=== PATIENT | male | born 1990 | race African-American/Black ===

== ENCOUNTER 2016-11-22 20:21 | Emergency (ER) | payer BC ==
[2016-11-22 20:33] VITALS: BP 163/104
--- NOTE | 2016-11-22 20:35 | EDM.PDOC ---
ED HPI GENERAL MEDICAL PROBLEM - General Chief Complaint: Neuro Symptoms/Deficits Stated Complaint: WEAK & DIZZY Time Seen by Provider: 11/22/16 20:34 Source of Information: Reports: Patient History Limitations: Reports: No Limitations - History of Present Illness INITIAL COMMENTS - FREE TEXT/NARRATIVE: 26-year-old male presents to the ED with complaints of feeling weak and dizzy. There is some suggestion that he passed a black tarry stool this morning. No noted blood per rectum. He does not take any iron supplements. Denies any significant abdominal pain. Bowel function is usually normal. He presents actually hypertensive and is not hypotensive or orthostatic. No previous abdominal surgery. No history of inflammatory bowel disorder. Takes Motrin sparingly usually once or twice per week. Regular rarely drinks alcohol. Denies use of any street drugs. He mentions that he has trouble eating and early satiety. Not really GERD. This is more of a chronic problem murmur not just today. Unsure if he's been running a fever or not. Onset: Today Onset Date: 11/22/16 Onset Time: 12:00 Duration: Hour(s): Location: Reports: Generalized (Generalized sense of weakness and dizziness.) Quality: Reports: Other Severity: Moderate (Week and dizzy) Improves with: Reports: Rest Worsens with: Reports: Other (Standing) Context: Denies: Activity, Exercise, Lifting, Sick Contact, Trauma, Other Associated Symptoms: Reports: Other (States he had a stool that was quite dark in color today. 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 11/22/16 [ Rx] Social & Family History - Living Situation & Occupation Living situation: Reports: Single Occupation: Employed ([employer]) ED ROS GENERAL - Review of Systems Review Of Systems: See Below Constitutional: Reports: No Symptoms HEENT: Reports: No Symptoms Respiratory: Reports: No Symptoms Cardiovascular: Reports: No Symptoms Endocrine: Reports: No Symptoms GI/Abdominal: Reports: No Symptoms : Reports: No Symptoms Musculoskeletal: Reports: No Symptoms Skin: Reports: No Symptoms Neurological: Reports: No Symptoms Psychiatric: Reports: No Symptoms Hematologic/Lymphatic: Reports: No Symptoms Immunologic: Reports: No Symptoms ED EXAM, NEURO - Physical Exam Exam: See Below Exam Limited By: No Limitations General Appearance: Alert, WD/WN, No Apparent Distress, Other (He is quite hypertensive at time of presentation 160 08/11/03 and tachycardic at 1 10/m. Does appear quite anxious.) Eye Exam: Bilateral Eye: Normal Inspection Nose: Normal Inspection Throat/Mouth: Normal Lips, Other (Tongue is dry and coated.) Head Exam: Atraumatic, Normocephalic Neck: Normal Inspection, Supple, Non-Tender, Full Range of Motion. No: Lymphadenopathy (L), Lymphadenopathy (R) Respiratory/Chest: No Respiratory Distress, Lungs Clear, Normal Breath Sounds, No Accessory Muscle Use, Respiratory Distress (Mild tachypnea at rest 20/m. O2 sats are 99% on room air) Cardiovascular: Normal Peripheral Pulses, Regular Rate, Rhythm, No Edema, No Murmur, Tachycardia GI/Abdominal: Normal Bowel Sounds (110 at rest.), Soft, Non-Tender, No Organomegaly, No Distention, No Abnormal Bruit, No Mass, Pelvis Stable Neurological: Alert, Normal Mood/Affect, Normal Dorsiflexion, CN II-XII Intact, Normal Gait Back Exam: Normal Inspection, Full Range of Motion Extremities: Normal Inspection, Normal Range of Motion, Non-Tender, No Pedal Edema, Normal Capillary Refill Psychiatric: Normal Affect, Normal Mood Skin Exam: Warm, Dry, Intact, Normal Color, No Rash Course - Vital Signs Last Recorded V/S: Last Vital Signs Temp 36.2 C 11/22/16 20:30 Pulse 110 H 11/22/16 20:30 Resp 20 11/22/16 20:30 BP 163/104 H 11/22/16 20:30 Pulse Ox 99 11/22/16 20:30 Orthostatic Blood Pressure [ 149/98 Standing] Orthostatic Blood Pressure [ 149/97 Sitting] Orthostatic Blood Pressure [ 143/99 Supine] - Orders/Labs/Meds Orders: Active Orders 24 hr Category Date Time Status Hemoccult [Fecal Occult Blood Collection] [RC] Care 11/22/16 22:25 Active ASDIRECTED Orthostatic Vital Signs [RC] ASDIRECTED Care 11/22/16 20:40 Active Guaiac [OCCULT BLOOD DIAGNOSTIC] [OP] Stat Lab 11/22/16 20:40 Uncollected Hemoccult [OCCULT BLOOD DIAGNOSTIC] [OP] Stat Lab 11/22/16 21:55 Uncollected Dextrose 5%-0.9% NaCl [Dextrose 5%-Normal Saline] 1,000 Med 11/22/16 20:45 Active ml IV ASDIRECTED Medication Orders Dextrose/Sodium Chloride (Dextrose 5%-Normal Saline) 1,000 mls @ 999 mls/hr IV ASDIRECTED SONAL Last Admin: 11/22/16 20:54 Dose: 999 mls/hr Labs: Laboratory Tests 11/22/16 11/22/16 11/22/16 Range/Units 20:38 20:43 20:43 WBC 6.92 (4.23-9.07) K/mm3 RBC 5.54 (4.63-6.08) M/mm3 Hgb 15.2 (13.7-17.5) gm/L Hct 45.2 (40.1-51.0) % MCV 81.6 (79.0-92.2) fl MCH 27.4 (25.7-32.2) pg MCHC 33.6 (32.2-35.5) g/dl RDW Std Deviation 38.8 (35.1-43.9) fL Plt Count 185 (163-337) K/mm3 MPV 11.7 (9.4-12.3) fl Neutrophils % (Manual) 26 L (40-60) % Band Neutrophils % 0 (0-10) % Lymphocytes % (Manual) 61 H (20-40) % Atypical Lymphs % 7 % Monocytes % (Manual) 5 (2-10) % Eosinophils % (Manual) 1 (0.8-7.0) % Basophils % (Manual) 0 L (0.2-1.2) Platelet Estimate Adequate Plt Morphology Comment See note Polychromasia Few Stomatocytes Few RBC Morph Comment Not Reportable Sodium 142 (136-145) mEq/L Potassium 3.4 L (3.5-5.1) mEq/L Chloride 106 (98-107) mEq/L Carbon Dioxide 29 (21-32) mEq/L Anion Gap 10.4 (5-15) BUN 10 (7-18) mg/dL Creatinine 1.1 (0.7-1.3) mg/dL Est Cr Clr Drug Dosing 85.96 mL/min Estimated GFR (MDRD) > 60 (>60) mL/min BUN/Creatinine Ratio 9.1 L (14-18) Glucose 125 H (74-106) mg/dL Calcium 8.9 (8.5-10.1) mg/dL Magnesium 1.7 L (1.8-2.4) mg/dl Total Bilirubin 0.6 (0.2-1.0) mg/dL AST 17 (15-37) U/L ALT 34 (16-63) U/L Alkaline Phosphatase 51 (46-116) U/L Total Protein 7.8 (6.4-8.2) g/dl Albumin 4.1 (3.4-5.0) g/dl Globulin 3.7 gm/dL Albumin/Globulin Ratio 1.1 (1-2) H. pylori IgG Antibody (NEGATIVE) Blood Type B POSITIVE Gel Antibody Screen Negative 11/22/16 Range/Units 20:43 WBC (4.23-9.07) K/mm3 RBC (4.63-6.08) M/mm3 Hgb (13.7-17.5) gm/L Hct (40.1-51.0) % MCV (79.0-92.2) fl MCH (25.7-32.2) pg MCHC (32.2-35.5) g/dl RDW Std Deviation (35.1-43.9) fL Plt Count (163-337) K/mm3 MPV (9.4-12.3) fl Neutrophils % (Manual) (40-60) % Band Neutrophils % (0-10) % Lymphocytes % (Manual) (20-40) % Atypical Lymphs % % Monocytes % (Manual) (2-10) % Eosinophils % (Manual) (0.8-7.0) % Basophils % (Manual) (0.2-1.2) Platelet Estimate Plt Morphology Comment Polychromasia Stomatocytes RBC Morph Comment Sodium (136-145) mEq/L Potassium (3.5-5.1) mEq/L Chloride (98-107) mEq/L Carbon Dioxide (21-32) mEq/L Anion Gap (5-15) BUN (7-18) mg/dL Creatinine (0.7-1.3) mg/dL Est Cr Clr Drug Dosing mL/min Estimated GFR (MDRD) (>60) mL/min BUN/Creatinine Ratio (14-18) Glucose (74-106) mg/dL Calcium (8.5-10.1) mg/dL Magnesium (1.8-2.4) mg/dl Total Bilirubin (0.2-1.0) mg/dL AST (15-37) U/L ALT (16-63) U/L Alkaline Phosphatase (46-116) U/L Total Protein (6.4-8.2) g/dl Albumin (3.4-5.0) g/dl Globulin gm/dL Albumin/Globulin Ratio (1-2) H. pylori IgG Antibody Positive H (NEGATIVE) Blood Type Gel Antibody Screen Meds: Medications Generic Name Dose Route Start Last Admin Trade Name Freq PRN Reason Stop Dose Admin Dextrose/Sodium Chloride 1,000 mls @ 999 mls/hr 11/22/16 20:45 11/22/16 20:54 Dextrose 5%-Normal Saline IV 999 mls/hr ASDIRECTED SONAL Administration - Radiology Interpretation Free Text/Narrative:: 26-year-old male presents to the ED with nonspecific symptoms of feeling weak and dizzy. Some suggesting may have had a black stool this morning. His appetite has not been the best as of late. He is alert and oriented. He is tachycardic at rest at 1 10/m but is also markedly hypertensive. Be somewhat anxious. Examination is otherwise normal. Benign abdominal examination. Tongue is dry and coated. Plan IV D5 normal saline at open. Routine labs to be collected. - Re-Assessments/Exams Free Text/Narrative Re-Assessment/Exam: 11/22/16 21:25: Rectal exam done revealed a rectal vault that was for the most part empty. A couple of flecks of stool were utilized for awake but it was negative. 11/22/16 22:11 labs reveal a normal white count at 6.92 with 26% neutrophils however and 61% lymphocytes strongly suggesting a viral infection. Hemoglobin is 15.2 hematocrit is 45.2 sodium 142 potassium 3.4 chloride 16 bicarbonate is 29 glucose was 125 magnesium mildly low at 1.7. H. pylori is positive. Therefore this time I believe he is suffering a viral infection. He will use Tylenol or Motrin as needed to reduce pain and inflammation. Continue plenty of fluids such as Gatorade or Powerade and advance diet as tolerated. Will start him on Prilosec 20 mg twice daily bedtime and morning for the next 3 days and then he can start oral antibiotics amoxicillin 1 g twice daily for 12 days and Biaxin 500 mg twice daily for 12 days to clear up H. pylori infection. He will of course return to medical care if his stools remain black lung more than one occasion. Departure - Departure Time of Disposition: 22:13 Disposition: Home, Self-Care 01 Condition: Fair Clinical Impression: Viral syndrome, Helicobacter pylori (H. pylori) infection - Discharge Information Prescriptions: Amoxicillin [Amoxil] 1,000 mg PO BID #24 cap Clarithromycin [Biaxin] 500 mg PO BID #24 tablet Omeprazole Magnesium [Prilosec Otc] 20 mg PO ASDIRECTED #90 tablet. Referrals: PCP,None [Primary Care Provider] - Forms: ED Department Discharge Additional Instructions: Evaluation the emergency room today in regards to general weakness and severe illness. Lab work identified a viral infection which is nonspecific. Concern for passage of dark black stool identified but tested negative for blood. However testing revealed that you are positive for H. pylori infection which is a bacteria that lives in the stomach and causes inflammation and about 90% of peptic ulcers. This deserves treatment with antibiotics. Initial treatment therefore is to buy Prilosec which is [id number] 20 mg at bedtime and first thing in the morning for 1 month. Uses medicine for 3 days before starting antibiotic therapy. Antibiotics are to be amoxicillin 1 g twice daily and Biaxin 500 mg twice daily for 12 days to clear up H. pylori infection of the stomach. Will need to use Prilosec 20 mg once daily at bedtime for further month after finishing the first month of therapy twice daily. - My Orders Last 24 Hours: My Active Orders 11/22/16 20:40 Orthostatic Vital Signs [RC] ASDIRECTED Guaiac [OCCULT BLOOD DIAGNOSTIC] [OP] Stat 11/22/16 20:45 Dextrose 5%-0.9% NaCl [Dextrose 5%-Normal Saline] 1,000 ml IV ASDIRECTED 11/22/16 21:55 Hemoccult [OCCULT BLOOD DIAGNOSTIC] [OP] Stat 11/22/16 22:25 Hemoccult [Fecal Occult Blood Collection] [RC] ASDIRECTED - Assessment/Plan Last 24 Hours: My Active Orders 11/22/16 20:40 Orthostatic Vital Signs [RC] ASDIRECTED Guaiac [OCCULT BLOOD DIAGNOSTIC] [OP] Stat 11/22/16 20:45 Dextrose 5%-0.9% NaCl [Dextrose 5%-Normal Saline] 1,000 ml IV ASDIRECTED 11/22/16 21:55 Hemoccult [OCCULT BLOOD DIAGNOSTIC] [OP] Stat 11/22/16 22:25 Hemoccult [Fecal Occult Blood Collection] [RC] ASDIRECTED
[2016-11-22] MEDS ORDERED: Dextrose 5%-0.9% NaCl 1,000 ML IV SCH (20:45)
== END 2016-11-22 23:31 | disposition home or self-care (01) ==
LOC: JD.ED 20:21
DX: B34.9 Viral infection, unspecified (principal); A04.8 Other specified bacterial intestinal infections
CPT/HCPCS: 36415; 80053; 82270; 83735; 85025; 86677; 86850; 86900; 86901; 96360; 99285; J7042; 99283

== ENCOUNTER 2017-05-04 09:10 | Emergency (ER) | payer BC ==
--- NOTE | 2017-05-04 09:49 | EDM.PDOC ---
ED HPI GENERAL MEDICAL PROBLEM - General Chief Complaint: Neuro Symptoms/Deficits Stated Complaint: DIZZINESS/SOME ANXIETY Time Seen by Provider: 05/04/17 09:27 Source of Information: Reports: Patient, RN Notes Reviewed - History of Present Illness INITIAL COMMENTS - FREE TEXT/NARRATIVE: 27-year-old male comes in after having an episode of dizziness, palpitations, that also made him feel "anxious". He presented to the walk-in clinic, they referred him here to the ED. He had no chest pain or difficulty breathing. He had been awake for a short period of time, was just doing some light cleaning up in the kitchen and began to feel moderately weak, dizzy, lightheaded and also palpitations across the front part of his chest. He did not feel like he is going to pass out. I'll order he has had several similar episodes of greater severity in the past month or 2 though felt like he should seek medical attention. He states he has been to the clinic a couple of times previously. He is not sure what all has been done but he knows that they did "check his thyroid " and that was normal. - Related Data Allergies Allergy/AdvReac Type Severity Reaction Status Date / Time No Known Allergies Allergy Verified 05/04/17 09:33 Home Meds: Home Meds Meclizine [Antivert] 25 mg PO Q4H PRN 05/04/17 [History] Past Medical History - Past Health History Medical/Surgical History: Denies Medical/Surgical History Other Gastrointestinal History: states bm today was black Social & Family History - Family History Family Medical History: Noncontributory - Tobacco Use Smoking Status *Q: Never Smoker - Caffeine Use Caffeine Use: Reports: Soda - Recreational Drug Use Recreational Drug Use: No - Living Situation & Occupation Living situation: Reports: Single Occupation: Employed ([employer]) ED ROS GENERAL - Review of Systems Review Of Systems: See Below Constitutional: Denies: Fever, Chills, Diaphoresis HEENT: Denies: Throat Pain Respiratory: Denies: Shortness of Breath Cardiovascular: Reports: Lightheadedness, Palpitations GI/Abdominal: Denies: Abdominal Pain, Diarrhea, Nausea, Vomiting : Reports: No Symptoms Musculoskeletal: Reports: No Symptoms Skin: Reports: No Symptoms Neurological: Reports: Dizziness. Denies: Numbness, Tingling, Trouble Speaking , Difficulty Walking Psychiatric: Reports: Anxiety (Patient did get anxious with this episode, he feels much better now, anxiety is gone) ED EXAM, NEURO - Physical Exam Exam: See Below General Appearance: Alert, No Apparent Distress Eye Exam: Bilateral Eye: PERRL Throat/Mouth: Normal Inspection, Normal Oropharynx Head Exam: Atraumatic. No: Facial Swelling Neck: Supple, Full Range of Motion Respiratory/Chest: No Respiratory Distress, Lungs Clear, Normal Breath Sounds Cardiovascular: Regular Rate, Rhythm GI/Abdominal: Soft, Non-Tender. No: Guarding Neurological: Alert, No Motor/Sensory Deficits, Oriented x 3 Extremities: Normal Inspection, Normal Range of Motion Skin Exam: Warm, Dry, Normal Color Course - Vital Signs Text/Narrative:: Heart monitor shows heart rhythm running in the low to mid 70s, sinus rhythm, no ectopy at this time Last Recorded V/S: Last Vital Signs Temp 97.1 F 05/04/17 09:29 Pulse 92 05/04/17 09:29 Resp 16 05/04/17 09:29 BP 144/89 H 05/04/17 09:29 Pulse Ox - Orders/Labs/Meds Labs: Laboratory Tests 05/04/17 05/04/17 Range/Units 09:55 09:55 WBC 3.04 L (4.23-9.07) K/mm3 RBC 5.55 (4.63-6.08) M/mm3 Hgb 15.3 (13.7-17.5) gm/L Hct 45.5 (40.1-51.0) % MCV 82.0 (79.0-92.2) fl MCH 27.6 (25.7-32.2) pg MCHC 33.6 (32.2-35.5) g/dl RDW Std Deviation 39.4 (35.1-43.9) fL Plt Count 192 (163-337) K/mm3 MPV 10.7 (9.4-12.3) fl Neut % (Auto) 38.5 (34.0-67.9) % Lymph % (Auto) 48.0 (21.8-53.1) % [place] % (Auto) 11.2 (5.3-12.2) % Eos % (Auto) 1.3 (0.8-7.0) Baso % (Auto) 1.0 (0.1-1.2) % Neut # (Auto) 1.17 L (1.78-5.38) K/mm3 Lymph # (Auto) 1.46 (1.32-3.57) K/mm3 [place] # (Auto) 0.34 (0.30-0.82) K/mm3 Eos # (Auto) 0.04 (0.04-0.54) K/mm3 Baso # (Auto) 0.03 (0.01-0.08) K/mm3 Sodium 144 (136-145) mEq/L Potassium 3.6 (3.5-5.1) mEq/L Chloride 105 (98-107) mEq/L Carbon Dioxide 30 (21-32) mEq/L Anion Gap 12.6 (5-15) BUN 9 (7-18) mg/dL Creatinine 1.1 (0.7-1.3) mg/dL Est Cr Clr Drug Dosing TNP Estimated GFR (MDRD) > 60 (>60) mL/min BUN/Creatinine Ratio 8.2 L (14-18) Glucose 94 (74-106) mg/dL Calcium 9.3 (8.5-10.1) mg/dL Total Bilirubin 0.4 (0.2-1.0) mg/dL AST 27 (15-37) U/L ALT 48 (16-63) U/L Alkaline Phosphatase 54 (46-116) U/L Total Protein 7.7 (6.4-8.2) g/dl Albumin 3.9 (3.4-5.0) g/dl Globulin 3.8 gm/dL Albumin/Globulin Ratio 1.0 (1-2) - Re-Assessments/Exams Free Text/Narrative Re-Assessment/Exam: 05/04/17 10:53 Patient has been resting comfortably while here in the ED, labs are good, he has been in sinus rhythm, heart rate in the 60s to mid 70s, no ectopy. Departure - Departure Time of Disposition: 10:53 Disposition: Home, Self-Care 01 Condition: Fair Clinical Impression: Dizziness, Palpitations - Discharge Information Referrals: Beverley Solano PA-C [Primary Care Provider] - Forms: ED Department Discharge Additional Instructions: Your labwork today was normal. Your heart rate and rhythm while here in the ED also was normal. When you do get extremely dizzy be sure to lower your head as discussed so you do not pass out. get a blood pressure cuff and checked your blood pressure about twice daily for the next 2 weeks. Keep a record of that and follow-up at the clinic in 10-14 days, bring that record of your blood pressure readings with you. If you're readings on average are running high then it would be appropriate to start you on blood pressure medicine. Return to ED if symptoms worsening in any way
[2017-05-04 12:33] VITALS: BP 126/85
== END 2017-05-04 11:20 | disposition home or self-care (01) ==
LOC: JD.ED 09:10
DX: R42 Dizziness and giddiness (principal); R00.2 Palpitations
CPT/HCPCS: 36415; 80053; 85025; 99283; 99285

== ENCOUNTER 2017-06-20 18:47 | Emergency (ER) | payer BC ==
[2017-06-20 18:58] VITALS: BP 158/102
--- NOTE | 2017-06-20 19:13 | EDM.PDOC ---
ED HPI GENERAL MEDICAL PROBLEM - General Chief Complaint: Neurological Problem Stated Complaint: DIZZY Time Seen by Provider: 06/20/17 19:03 - History of Present Illness INITIAL COMMENTS - FREE TEXT/NARRATIVE: 27-year-old male presents to the emergency room with dizziness and anxiety. The patient get some dizziness and then he develops anxiety and they came to feed off each other's had intermittent problems like this in the past. Ativan usually works pretty well for the patient is worried that something might be wrong with his heart. He's had no breathing difficulties no shortness of breath no real palpitations no chest pain chest pressure no edema. - Related Data Allergies Allergy/AdvReac Type Severity Reaction Status Date / Time No Known Allergies Allergy Verified 05/04/17 09:33 Home Meds: Home Meds Meclizine [Antivert] 25 mg PO Q4H PRN 05/04/17 [History] LORazepam [Ativan] 0.5 mg PO Q8H PRN #10 tablet 06/20/17 [Rx] Magnesium Oxide [Magnesium] 400 mg PO Q24H #10 tablet 06/20/17 [Rx] Past Medical History - Past Health History Medical/Surgical History: Denies Medical/Surgical History Other Gastrointestinal History: states bm today was black Psychiatric History: Reports: Anxiety Social & Family History - Family History Family Medical History: Noncontributory - Tobacco Use Smoking Status *Q: Never Smoker - Caffeine Use Caffeine Use: Reports: None - Recreational Drug Use Recreational Drug Use: No - Living Situation & Occupation Living situation: Reports: Single Occupation: Employed ([employer]) ED ROS GENERAL - Review of Systems Review Of Systems: See Below Constitutional: Reports: No Symptoms HEENT: Reports: No Symptoms Respiratory: Reports: No Symptoms Cardiovascular: Reports: No Symptoms Endocrine: Reports: No Symptoms GI/Abdominal: Reports: No Symptoms : Reports: No Symptoms Musculoskeletal: Reports: No Symptoms Skin: Reports: No Symptoms Neurological: Reports: Dizziness. Denies: Headache, Numbness, Pre-Existing Deficit, Seizure, Syncope, Tremors, Change in Speech, Gait Disturbance Psychiatric: Reports: No Symptoms ED EXAM, GENERAL - Physical Exam Exam: See Below Exam Limited By: No Limitations General Appearance: Alert, No Apparent Distress Eye Exam: Bilateral Eye: EOMI, Normal Inspection Nose: Normal Inspection, Normal Mucosa Throat/Mouth: Normal Inspection, Normal Lips, Normal Gums, Normal Oropharynx, Normal Voice, No Airway Compromise Neck: Normal Inspection, Supple, Non-Tender, Full Range of Motion. No: Lymphadenopathy (L), Lymphadenopathy (R) Respiratory/Chest: No Respiratory Distress, Lungs Clear Cardiovascular: Regular Rate, Rhythm, No Edema, No Murmur Back Exam: Normal Inspection. No: CVA Tenderness (L), CVA Tenderness (R) Extremities: Normal Inspection, No Pedal Edema Neurological: Alert, Oriented, Normal Cognition, No Motor/Sensory Deficits Psychiatric: Normal Affect, Normal Mood Skin Exam: Warm, Dry EKG INTERPRETATION EKG Date: 06/20/17 Rhythm: NSR [place]: Normal P-Wave: Present QRS: Normal ST-T: Normal QT: Normal Comparison: NA - No Prior EKG Course - Vital Signs Last Recorded V/S: Last Vital Signs Temp 36.0 C 06/20/17 18:54 Pulse 107 H 06/20/17 18:54 Resp 18 06/20/17 18:54 BP 158/102 H 06/20/17 18:54 Pulse Ox 98 06/20/17 18:54 - Orders/Labs/Meds Orders: Active Orders 24 hr Category Date Time Status EKG Documentation Completion [RC] STAT Care 06/20/17 19:26 Active Labs: Laboratory Tests 06/20/17 Range/Units 19:55 Sodium 139 (136-145) mEq/L Potassium 3.9 (3.5-5.1) mEq/L Chloride 102 (98-107) mEq/L Carbon Dioxide 28 (21-32) mEq/L Anion Gap 12.9 (5-15) BUN 13 (7-18) mg/dL Creatinine 1.1 (0.7-1.3) mg/dL Est Cr Clr Drug Dosing 85.21 mL/min Estimated GFR (MDRD) > 60 (>60) mL/min BUN/Creatinine Ratio 11.8 L (14-18) Glucose 96 (74-106) mg/dL Calcium 9.3 (8.5-10.1) mg/dL Magnesium 1.7 L (1.8-2.4) mg/dl Meds: Medications Discontinued Medications Generic Name Dose Route Start Last Admin Trade Name Freq PRN Reason Stop Dose Admin Lorazepam 0.5 mg 06/20/17 19:27 06/20/17 19:35 Ativan PO 06/20/17 19:28 0.5 mg ONETIME ONE Administration Magnesium Oxide 400 mg 06/20/17 20:36 Magnesium Oxide PO 06/20/17 20:37 ONETIME ONE - Re-Assessments/Exams Free Text/Narrative Re-Assessment/Exam: 06/20/17 20:45 Labs reviewed his magnesium is a little low otherwise unremarkable EKG probably normal with some normal variants. Blood pressure has come down with no intervention patient will be discharged with magnesium oxide 40 mg daily Departure - Departure Time of Disposition: 20:46 Disposition: Home, Self-Care 01 Clinical Impression: Anxiety - Discharge Information Prescriptions: LORazepam [Ativan] 0.5 mg PO Q8H PRN #10 tablet PRN Reason: Anxiety Magnesium Oxide [Magnesium] 400 mg PO Q24H #10 tablet Referrals: PCP,None [Primary Care Provider] - Forms: ED Department Discharge Additional Instructions: Return to the emergency room with any questions problems worsening symptoms. Follow-up in the clinic early next week for recheck. - My Orders Last 24 Hours: My Active Orders 06/20/17 19:26 EKG Documentation Completion [RC] STAT - Assessment/Plan Last 24 Hours: My Active Orders 06/20/17 19:26 EKG Documentation Completion [RC] STAT
[2017-06-20] MEDS ORDERED: LORazepam 0.5 MG Tab PO ONE (19:27)
[2017-06-20] MEDS ORDERED: Magnesium Oxide 400 MG Tab PO ONE (20:36)
== END 2017-06-20 21:09 | disposition home or self-care (01) ==
LOC: JD.ED 18:47
DX: F41.9 Anxiety disorder, unspecified (principal)
CPT/HCPCS: 36415; 80048; 83735; 93005; 99284; A9270; 93010; 99283-25

== ENCOUNTER 2017-09-28 19:31 | Emergency (ER) | payer BC ==
[2017-09-28 19:43] VITALS: BP 151/98
--- NOTE | 2017-09-28 19:55 | EDM.PDOC ---
ED HPI GENERAL MEDICAL PROBLEM - General Chief Complaint: Chest Pain Stated Complaint: CHEST PAIN Time Seen by Provider: 09/28/17 19:44 Source of Information: Reports: Patient History Limitations: Reports: No Limitations - History of Present Illness INITIAL COMMENTS - FREE TEXT/NARRATIVE: 37-year-old male of -[place] descent presents to the ED with left precordial chest pain which is unable to localize any specific area. Been present for the last 2 days. States it doesn't hurt to breathe or cough. Pains tend to be a bead of an achy discomfort but occasionally become sharp and stabbing. There is no associated fever. He's been coughing for about a week. Ringing up occasional sputum. No pulses. No recent travel history. 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 He states his appetite is good. He has no trouble swallowing or eating. Does not use any Tums or Rolaids. No known coronary disease. Onset: Gradual Onset Date: 09/27/17 (Physical he should left precordial chest pains off and on for the last 2 days.) Duration: Day(s): Location: Reports: Chest (Left precordial chest.) Quality: Reports: Ache, Dull (Occasional sharp pain), Sharp, Stabbing Severity: Mild Improves with: Reports: None Worsens with: Reports: None Context: Denies: Activity, Exercise, Lifting, Sick Contact, Other Associated Symptoms: Reports: Cough (Has been coughing small amounts of sputum production for the last), cough w sputum (Occasional sputum production). Denies : No Other Symptoms, Confusion ( week.), Diaphoresis, Fever/Chills, Headaches, Loss of Appetite, Malaise, Nausea/Vomiting, Rash, Seizure, Shortness of Breath, Syncope, Weakness Treatments [employer]PER[employer]: Reports: Other (see below) Chest Pain Score (Numeric/FACES): 1 - Related Data Allergies Allergy/AdvReac Type Severity Reaction Status Date / Time No Known Allergies Allergy Verified 09/28/17 19:39 Home Meds: Home Meds . [No Known Home Meds] 09/28/17 [History] Past Medical History - Past Health History Medical/Surgical History: Denies Medical/Surgical History Other Gastrointestinal History: states bm today was black Psychiatric History: Reports: Anxiety Social & Family History - Family History Family Medical History: Noncontributory - Tobacco Use Smoking Status *Q: Never Smoker - Caffeine Use Caffeine Use: Reports: None - Recreational Drug Use Recreational Drug Use: No - Living Situation & Occupation Living situation: Reports: Single Occupation: Employed ([employer]) ED ROS GENERAL - Review of Systems Review Of Systems: See Below Constitutional: Denies: Fever, Chills, Malaise, Weakness, Fatigue, Diaphoresis, Decreased Appetite, Weight Loss HEENT: Reports: No Symptoms Respiratory: Reports: Cough, Sputum. Denies: Shortness of Breath, Wheezing, Pleuritic Chest Pain, Hemoptysis Cardiovascular: Reports: Chest Pain ( Left), Blood Pressure Problem ( precordial chest. ). Denies: Claudication, Dyspnea on Exertion, Edema, Lightheadedness, Orthopnea Endocrine: Reports: Fatigue (Has been told his blood pressures been elevated in the past.) GI/Abdominal: Reports: No Symptoms : Reports: No Symptoms Musculoskeletal: Reports: No Symptoms Skin: Reports: No Symptoms Neurological: Reports: No Symptoms Psychiatric: Reports: No Symptoms Hematologic/Lymphatic: Reports: No Symptoms Immunologic: Reports: Seasonal Allergy ED EXAM, GENERAL - Physical Exam Exam: See Below Exam Limited By: No Limitations General Appearance: Alert, WD/WN, No Apparent Distress, Anxious (Is mildly anxious and blood pressure is elevated.) Eye Exam: Bilateral Eye: Normal Inspection Head: Atraumatic, Normocephalic Neck: Normal Inspection, Supple, Non-Tender, Full Range of Motion. No: Carotid Bruit, Lymphadenopathy (L), Lymphadenopathy (R) Respiratory/Chest: No Respiratory Distress, Lungs Clear, Normal Breath Sounds, No Accessory Muscle Use, Other Cardiovascular: Normal Peripheral Pulses, Regular Rate, Rhythm (Could not identify any chest wall tenderness to pop palpation of the chest wall), No Edema , No Gallop, No Rub, Systolic Murmur (Very faint less than 1/6 systolic murmur heard best at the left lateral sternal border compatible with aortic stenosis.) Peripheral Pulses: 3+: Posterior Tibial (L), Posterior Tibial (R), Dorsalis Pedis (L), Dorsalis Pedis (R) GI/Abdominal: Normal Bowel Sounds, Soft, Non-Tender, No Organomegaly, No Distention Extremities: Normal Inspection, Normal Range of Motion, Non-Tender, No Pedal Edema Neurological: Alert, Oriented, CN II-XII Intact, Normal Cognition Psychiatric: Normal Affect, Normal Mood Skin Exam: Warm, Dry, Intact, Normal Color, No Rash EKG INTERPRETATION EKG Date: 09/28/17 Time: 19:45 Rhythm: NSR Rate (Beats/Min): 98 [place]: Normal P-Wave: Enlarged (Biatrial hypertrophy pattern.) QRS: RBBB (RSR prime wave in V1 normal variant.) ST-T: Normal QT: Normal EKG Interpretation Comments: Abnormal ECG. Course - Vital Signs Last Recorded V/S: Last Vital Signs Temp 36.5 C 09/28/17 19:40 Pulse 104 H 09/28/17 19:40 Resp 19 09/28/17 19:40 BP 151/98 H 09/28/17 19:40 Pulse Ox 100 09/28/17 19:40 - Orders/Labs/Meds Orders: Active Orders 24 hr Category Date Time Status EKG Documentation Completion [RC] STAT Care 09/28/17 19:58 Active Peripheral IV Care [RC] . DIRECTED Care 09/28/17 21:01 Active Chest 1V Frontal [CR] Stat Exams 09/28/17 19:58 Taken Chest w Cont [CT] Stat Exams 09/28/17 21:02 Taken Peripheral IV Insertion Adult [OM.PC] Stat Oth 09/28/17 21:01 Ordered Labs: Laboratory Tests 09/28/17 09/28/17 09/28/17 Range/Units 20:16 20:16 20:16 WBC 5.83 (4.23-9.07) K/mm3 RBC 5.41 (4.63-6.08) M/mm3 Hgb 14.4 (13.7-17.5) gm/L Hct 44.4 (40.1-51.0) % MCV 82.1 (79.0-92.2) fl MCH 26.6 (25.7-32.2) pg MCHC 32.4 (32.2-35.5) g/dl RDW Std Deviation 39.1 (35.1-43.9) fL Plt Count 197 (163-337) K/mm3 MPV 10.4 (9.4-12.3) fl Neutrophils % (Manual) 49 (40-60) % Band Neutrophils % 0 (0-10) % Lymphocytes % (Manual) 48 H (20-40) % Atypical Lymphs % 0 % Monocytes % (Manual) 3 (2-10) % Eosinophils % (Manual) 0 L (0.8-7.0) % Basophils % (Manual) 0 L (0.2-1.2) Platelet Estimate Adequate Plt Morphology Comment Normal RBC Morph Comment Normal D-Dimer, Quantitative < 0.19 L (0.19-0.50) mg/L Sodium 139 (136-145) mEq/L Potassium 3.4 L (3.5-5.1) mEq/L Chloride 103 (98-107) mEq/L Carbon Dioxide 28 (21-32) mEq/L Anion Gap 11.4 (5-15) BUN 9 (7-18) mg/dL Creatinine 1.1 (0.7-1.3) mg/dL Est Cr Clr Drug Dosing 84.88 mL/min Estimated GFR (MDRD) > 60 (>60) mL/min BUN/Creatinine Ratio 8.2 L (14-18) Glucose 157 H (74-106) mg/dL Calcium 8.9 (8.5-10.1) mg/dL Total Bilirubin 0.3 (0.2-1.0) mg/dL AST 24 (15-37) U/L ALT 36 (16-63) U/L Alkaline Phosphatase 55 (46-116) U/L CK-MB (CK-2) 1.1 (0-3.6) ng/ml Troponin I < 0.017 (0.00-0.056) ng/mL C-Reactive Protein < 0.2 (<1.0) mg/dL Total Protein 7.0 (6.4-8.2) g/dl Albumin 3.7 (3.4-5.0) g/dl Globulin 3.3 gm/dL Albumin/Globulin Ratio 1.1 (1-2) Meds: Medications Discontinued Medications Generic Name Dose Route Start Last Admin Trade Name Freq PRN Reason Stop Dose Admin Sodium Chloride 10 ml 09/28/17 21:01 Saline Flush FLUSH ASDIRECTED PRN Keep Vein Open - Radiology Interpretation Free Text/Narrative:: 27-year-old male of descent presents to the ED with nonspecific left precordial chest discomfort off and on for the last 2 days. Has hard time describing it but it's mostly dull and aching but occasionally becomes sharp and stabbing. He has been coughing with mild bronchitis for the last week. Occasional sputum production which is clear. No hemoptysis. No fever no chills. No GERD or trouble swallowing. Examination is completely benign. No chest wall tenderness elicited. Lungs sound clear heart is sinus at 90/m. Of note he is hypertensive he is known to be somewhat anxious. However his ECG suggests some abnormalities. On examination I get a very quiet early systolic murmur at the left lower sternal border suggesting aortic stenosis. This could also be tricuspid insufficiency. The ECG suggests left ventricular hypertrophy pattern but may be normal for stature and his age it suggest there may be a component of septal hypertrophy as there is early R-wave transition in V3 V4. It also suggests he has biatrial hypertrophy. Therefore I think he is a candidate for a echocardiogram to make sure he hasn't have hypertrophic septum with outflow obstruction. At any rate at this time he will have a chest x-ray performed in routine labs including cardiac markers. He doesn't smoke - Re-Assessments/Exams Free Text/Narrative Re-Assessment/Exam: 09/28/17 20:59 chest x-ray is revealing mild hyperinflated lung santam[place] compatible with his age. Cardiac silhouette is normal. There appears to be a granuloma or nodule measuring about 1.3 cm in diameter in the lingula of the left lung. He is from [place] and it's unclear whether or not he's ever been exposed to tuberculosis. I therefore spoke with him at length and decision made is to CT of his chest while he is here to have a better look at this area. 09/28/17 22:46 Labs are back and reveal a normal white count at 5.83. Differential is 49% neutrophils no bands and 40% lymphocytes which is mildly elevated. Hemoglobin is 14.4 with hematocrit of 44.4. D-dimer is less than 0.19. Chemistry shows a sodium of 139 potassium slightly low at 3.4. Chloride is 103 with a bicarbonate 28. And a gap is normal 11.4. BUN is 9 with a creatinine of 1.1. Glucose is 157. Cardiac markers are normal with a CK-MB fraction of 1.1. Troponin I is less than 0.017. C-reactive protein is less than 0.2. CT of the chest is been completed as well and does not reveal any granulomatous abnormalities. Therefore it's a prominent left pulmonary artery that appear today gratis as a granuloma in the left lingula. Patient reassured in this regard. Pain is of noncardiac origin. I will arrange for an echocardiogram as an outpatient due to his abnormal ECG to rule out septal hypertrophy. X-ray would department will call him tomorrow to arrange an appointment suitable to both of them. The results are to go to Beverley Solano his primary care provider. Departure - Departure Time of Disposition: 22:58 Disposition: Home, Self-Care 01 Condition: Fair Clinical Impression: Non-cardiac chest pain, Atypical chest pain Instructions: Nonspecific Chest Pain Referrals: Beverley Solano PA-C [Primary Care Provider] - Forms: ED Department Discharge Additional Instructions: Evaluation the emergency room tonight in regards to intermittent left-sided chest pains last few days. You came into the ED essentially to rule out any problems with your heart or underlying lungs. You have had an upper respiratory tract infection with mild cough for the last 10 days or so. X-ray of the chest did not reveal any signs of pneumonia or infection. It suggested a nodule in the left lingula of the lung. Since you are from [place] concern was noted for possible exposure to tuberculosis as a youngster or other infective process that may cause a nodule in the lung. CT scan of the chest was therefore carried out and it does not reveal any granuloma or nodule in the chest. Turns out that the nodule appreciated on chest x-ray is a confluence of blood vessels running from the left pulmonary artery and is a normal variation. Therefore there is nothing to worry about in this regard. Lab tests proved to be negative for any evidence of blood clots in the lungs or elevation of heart markers to suggest any heart related illness. Also white blood cell count is normal and does suggesting underlying mild viral infection. The rest of your labs were completely normal as well. Therefore chest wall pain or mild inflammation of the lung lining is the cause of your chest discomfort. It will go away on its own over the next 5-7 days. If it is bothersome I would suggest using Aleve 2 tablets every 8 hours or Motrin 600 mg every 6 hours if needed. Activity as per your normal. As we discussed her ECG suggests that you may have some abnormalities of the structural wall of your heart however this may be due to your size and stature as well and therefore the ECG may just be a variation of normal or reflect your body size. Therefore I think it is prudent to rule out any structural abnormality of the septum of your heart and I would suggest that you haven't echocardiogram of her heart carried out. This is an ultrasound and is a very simple procedure takes about 20 minutes to perform. It is usually read by a occupational health specialist in [place] and the results are usually available to your personal care provider 3-4 days after the test is done. I would suggest making an appointment to see Beverley Solano about 4 days after you have the echocardiogram done. X-ray department is to call you tomorrow to arrange a suitable appointment to have this test performed. - My Orders Last 24 Hours: My Active Orders 09/28/17 19:58 EKG Documentation Completion [RC] STAT Chest 1V Frontal [CR] Stat 09/28/17 21:01 Peripheral IV Care [RC] . DIRECTED Peripheral IV Insertion Adult [OM.PC] Stat 09/28/17 21:02 Chest w Cont [CT] Stat - Assessment/Plan Last 24 Hours: My Active Orders 09/28/17 19:58 EKG Documentation Completion [RC] STAT Chest 1V Frontal [CR] Stat 09/28/17 21:01 Peripheral IV Care [RC] . DIRECTED Peripheral IV Insertion Adult [OM.PC] Stat 09/28/17 21:02 Chest w Cont [CT] Stat
[2017-09-28] MEDS ORDERED: Sodium Chloride 0.9% 10 ML Syringe FLUSH PRN (21:01)
--- NOTE | 2017-09-29 08:06 | CT ---
CT chest Technique: Multiple axial sections through the chest were obtained. Intravenous contrast was utilized. Comparison: No prior chest CT, previous chest x-ray performed earlier on the same day (8:03 PM). Findings: Mediastinum and hilar regions show no adenopathy or mass. Opacified great vessels appear within normal limits. No pericardial thickening is seen. Small portion of the visualized upper abdominal structures appear within normal limits. Lungs are clear. No pleural effusions or pneumothorax is seen. No abnormal parenchymal densities are seen. Bone window settings were reviewed which appear within normal limits. Impression: 1. No abnormality is identified on contrast-enhanced head CT. Diagnostic code #1 Agree with preliminary report issued by [facility] ([facility] preliminary report dictated on 09/28/17, 11:35 PM Central Time)
--- NOTE | 2017-09-29 08:06 | CR ---
Chest: Portable view of the chest was obtained. Comparison: Prior chest x-ray is not available, subsequent CT chest exam (performed on same day) is available. Heart size and mediastinum are normal. Lungs are clear. Minimal scoliosis is noted. Impression: 1. Nothing acute is seen on portable chest x-ray. Diagnostic code #1
== END 2017-09-28 23:17 | disposition home or self-care (01) ==
LOC: JD.ED 19:31
DX: R07.89 Other chest pain (principal)
CPT/HCPCS: 36415; 71045; 71045-26; 71260; 71260-26; 80053; 82553; 84484; 85025; 85379; 86140; 93005; 93010; 99284-25; 99285-25

== ENCOUNTER 2017-10-11 07:08 | Emergency (ER) | payer BC ==
[2017-10-11 07:18] VITALS: BP 147/99
--- NOTE | 2017-10-11 07:24 | EDM.PDOC ---
ED HPI GENERAL MEDICAL PROBLEM - General Chief Complaint: Syncope Stated Complaint: SYNCOPE Time Seen by Provider: 10/11/17 07:23 Source of Information: Reports: Patient History Limitations: Reports: No Limitations - History of Present Illness INITIAL COMMENTS - FREE TEXT/NARRATIVE: 7-year-old male of descent presents to the ED due to feeling dizzy and like he might pass out this morning. Patient states he got up around 0530 hrs. He took DayQuil orally about 545 hours. He then went to the gym and worked out and felt pretty well. After showering and cleaning up and getting ready for work he started to feel quite dizzy and lightheaded when he attended work. By dizzy he means that he felt like he might pass out. He did have a mild sensation of vertigo as well. She was walking a bit off kilter. Eyes headache denies any tinnitus. He is getting over a cold. Denies cough or sputum production. No fever no chills. Is unclear exactly why he decided take DayQuil this morning. He did have a little bit of rice in his stomach before he went to work this morning. He did have an echocardiogram done at the clinic yesterday. The results will not be available for 2 more days. This is as a result of his abnormal ECG picked up in the ED 10 days ago. He appeared to have significant septal hypertrophy and I requested an echocardiogram to rule out left ventricular outlet syndrome. At present he is alert she's oriented and appears to be no difficulties. His vital signs are normal. Onset: Today Onset Date: 10/11/17 Onset Time: 07:00 Duration: Minutes: Location: Reports: Generalized (Honor dizzy lightheaded and reported that he seemed to walk offkilter.) Quality: Reports: Same as Previous Episode Severity: Moderate Improves with: Reports: Rest (Feels better now at complete rest.) Worsens with: Reports: Movement Context: Denies: Activity, Exercise, Lifting, Sick Contact, Trauma Associated Symptoms: Denies: Confusion, Chest Pain, Cough, cough w sputum, Diaphoresis, Fever/Chills, Headaches, Loss of Appetite, Malaise, Nausea/Vomiting , Rash, Seizure, Shortness of Breath, Syncope Treatments HAMMER FITTER: Reports: Other (see below) (He is taking DayQuil about 545 hours this morning.) - Related Data Allergies Allergy/AdvReac Type Severity Reaction Status Date / Time No Known Allergies Allergy Verified 09/28/17 19:39 Home Meds: Home Meds . [No Known Home Meds] 09/28/17 [History] Past Medical History - Past Health History Medical/Surgical History: Denies Medical/Surgical History Other Gastrointestinal History: states bm today was black Psychiatric History: Reports: Anxiety Social & Family History - Family History Family Medical History: Noncontributory - Tobacco Use Smoking Status *Q: Never Smoker - Caffeine Use Caffeine Use: Reports: None - Recreational Drug Use Recreational Drug Use: No - Living Situation & Occupation Living situation: Reports: Single Occupation: Employed ([employer]) ED ROS GENERAL - Review of Systems Review Of Systems: See Below Constitutional: Denies: Fever, Chills, Malaise, Weakness, Fatigue, Diaphoresis, Decreased Appetite, Weight Loss, Weight Gain HEENT: Reports: Rhinitis, Vertigo (Mild components of vertigo with he feels offkilter with an off kilter gait at times.). Denies: Contact Lenses, Dental Pain, Ear Discharge, Ear Pain, Eye Pain, Glasses, Hearing Loss, Nosebleed, Sinus Problem, Throat Pain, Throat Swelling Respiratory: Reports: No Symptoms Cardiovascular: Reports: Lightheadedness. Denies: Chest Pain, Blood Pressure Problem, Claudication, Dyspnea on Exertion, Edema, Orthopnea, Palpitations, PND , Syncope, Other Endocrine: Reports: No Symptoms GI/Abdominal: Reports: No Symptoms : Reports: No Symptoms Musculoskeletal: Reports: No Symptoms Skin: Reports: No Symptoms Neurological: Reports: Dizziness, Difficulty Walking (This morning he reports she has some difficulty walking by a mildly ataxic gait.). Denies: Headache, Numbness, Paresthesia, Pre-Existing Deficit, Seizure, Syncope, Tingling, Tremors , Trouble Speaking, Change in Speech, Gait Disturbance Psychiatric: Reports: No Symptoms Hematologic/Lymphatic: Reports: No Symptoms Immunologic: Reports: No Symptoms ED EXAM, DIZZINESS - Physical Exam Exam: See Below Exam Limited By: No Limitations General Appearance: Alert, WD/WN, Anxious (Mildly anxious.) Eye Exam: Bilateral Eye: Normal Inspection Ears: Other (Small amount of fluid behind the right tympanic membrane. His badly scarred without any fluid.) Nose: Other (Some swelling of the middle turbinates bilaterally worse in the right as compared to the left. No true nasal polyp identified.) Throat/Mouth: Normal Inspection, Normal Lips, Normal Teeth, Normal Oropharynx, Other (Uvula is in the midline.) Head Exam: Atraumatic, Normocephalic Neck: Normal Inspection, Supple, Non-Tender, Full Range of Motion. No: Carotid Bruit, Lymphadenopathy (R) Respiratory/Chest: No Respiratory Distress, Lungs Clear, Normal Breath Sounds, No Accessory Muscle Use, Chest Non-Tender Cardiovascular: Normal Peripheral Pulses, Regular Rate, Rhythm, No Edema, No Gallop, No Murmur, No Rub GI/Abdominal: Normal Bowel Sounds, Soft, Non-Tender, No Organomegaly, No Abnormal Bruit, No Mass, Pelvis Stable Neurological: Alert, Normal Mood/Affect, Normal Dorsiflexion, CN II-XII Intact, Normal Plantar Flexion, Normal Gait, Normal Reflexes, No Motor/Sensory Deficits , Oriented x 3, Other (Negative Romberg sign. He was also able to walk heel to toe both forward and backwards without any problems.). No: Abnormal Finger to Nose, Abnormal Motor, Babinski Back Exam: Normal Inspection, Full Range of Motion. No: CVA Tenderness (L), CVA Tenderness (R) Extremities: Normal Inspection, Normal Range of Motion, Non-Tender, No Pedal Edema Psychiatric: Normal Affect, Normal Mood Skin Exam: Warm, Dry, Intact, Normal Color, No Rash EKG INTERPRETATION EKG Date: 10/11/17 Time: 07:38 Rhythm: NSR Rate (Beats/Min): 87 Maxwell: Normal P-Wave: Present QRS: Other (Early R-wave transition with prominent R waves in V3 V4. Consider septal hypertrophy pattern. Hypertrophy pattern) ST-T: Normal QT: Normal EKG Interpretation Comments: Borderline ECG. Course - Vital Signs Last Recorded V/S: Last Vital Signs Temp 37.0 C 10/11/17 07:15 Pulse 96 10/11/17 07:15 Resp 16 10/11/17 07:15 BP 147/99 H 10/11/17 07:15 Pulse Ox 99 10/11/17 07:15 Orthostatic Blood Pressure [ 131/88 Standing] Orthostatic Blood Pressure [ 131/90 Sitting] Orthostatic Blood Pressure [ 126/77 Supine] - Orders/Labs/Meds Orders: Active Orders 24 hr Category Date Time Status EKG Documentation Completion [RC] STAT Care 10/11/17 07:23 Active Orthostatic Vital Signs [RC] ASDIRECTED Care 10/11/17 07:22 Active Labs: Laboratory Tests 10/11/17 10/11/17 10/11/17 Range/Units 07:40 07:40 07:40 WBC 4.01 L (4.23-9.07) K/mm3 RBC 5.48 (4.63-6.08) M/mm3 Hgb 14.9 (13.7-17.5) gm/L Hct 45.4 (40.1-51.0) % MCV 82.8 (79.0-92.2) fl MCH 27.2 (25.7-32.2) pg MCHC 32.8 (32.2-35.5) g/dl RDW Std Deviation 40.8 (35.1-43.9) fL Plt Count 202 (163-337) K/mm3 MPV 10.5 (9.4-12.3) fl Neutrophils % (Manual) 40 (40-60) % Band Neutrophils % 0 (0-10) % Lymphocytes % (Manual) 58 H (20-40) % Monocytes % (Manual) 1 L (2-10) % Eosinophils % (Manual) 1 (0.8-7.0) % Basophils % (Manual) 0 L (0.2-1.2) Platelet Estimate Adequate RBC Morph Comment Normal Sodium 139 (136-145) mEq/L Potassium 3.5 (3.5-5.1) mEq/L Chloride 102 (98-107) mEq/L Carbon Dioxide 28 (21-32) mEq/L Anion Gap 12.5 (5-15) BUN 6 L (7-18) mg/dL Creatinine 1.2 (0.7-1.3) mg/dL Est Cr Clr Drug Dosing 78.11 mL/min Estimated GFR (MDRD) > 60 (>60) mL/min BUN/Creatinine Ratio 5.0 L (14-18) Glucose 115 H (74-106) mg/dL Calcium 9.3 (8.5-10.1) mg/dL Total Bilirubin 0.3 (0.2-1.0) mg/dL AST 28 (15-37) U/L ALT 48 (16-63) U/L Alkaline Phosphatase 55 (46-116) U/L Total Protein 7.6 (6.4-8.2) g/dl Albumin 4.0 (3.4-5.0) g/dl Globulin 3.6 gm/dL Albumin/Globulin Ratio 1.1 (1-2) TSH 3rd Generation 1.303 (0.358-3.74) uIU/mL - Radiology Interpretation Free Text/Narrative:: 27-year-old male presents the ED once again feeling dizzy. Heart to quantify this or qualified. There is a component of ataxia as he felt his gait was off and he was walking slightly ataxic. Swimming vision. States he could read a book if he had to. Honor like he might pass out. He recognizes that there is a component of anxiety here. He has no tinnitus. Neurological exam as far as rapid altering movements finger to nose assessment do not reveal any ataxia. He did take a DayQuil tablet or liquid about 545 hours this morning which would've peaked about 7:00 this morning and maybe he was experiencing side effects of the medication. Plan routine labs including a TSH to rule out hyperthyroidism. Integument ongoing for about 3-4 weeks. His ECG is in fact abnormal with evidence of septal hypertrophy pattern. He did have an echocardiogram done at the clinic yesterday but the results will not be available for another 2 days. - Re-Assessments/Exams Free Text/Narrative Re-Assessment/Exam: 10/11/17 07:56 orthostatic BPs are normal. We were able to obtain a copy of his transthoracic echocardiogram that was done yesterday. It is essentially normal and does not reveal any signs of septal hypertrophy that are shown on the ECG. The echocardiogram is completely normal. 10/11/17 08:23 Labs are back. White count is normal at 4.01. Differential is 58 % lymphocytes suggesting a viral underlying infective disorder. Neutrophil count is low at 40%. Hemoglobin is 14.9 with hematocrit 45.4. Platelet count is normal 202,000. Sodium is 139 with a potassium low-normal at 3.5. Chloride 102 bicarbonate 28. And a gap is 12.5. You in his 7 with a creatinine of 1.2. Glucose is 1:15. Calcium is 9.3. Liver function is normal. 10/11/17 08:32 TSH is also normal at 1.3. Therefore the labs essentially came back normal except for the right shift suggesting that he has underlying viral infective process. Treatment will be conservative with plenty of fluids and diet as tolerated. I think there is an overlying anxiety component to his symptoms as well. I reassured him that his echocardiogram that was done recently is normal. Departure - Departure Time of Disposition: 08:38 Disposition: Home, Self-Care 01 Condition: Fair Clinical Impression: Viral syndrome - Discharge Information Referrals: Beverley Solano PA-C [Primary Care Provider] - Forms: ED Department Discharge Additional Instructions: Evaluation the emergency room today in regards to sudden onset of feeling quite dizzy lightheaded with a component of feeling offkilter when you are walking. Complete neuro exam is normal. Complete investigation of her cardiac system including ECG is normal. A copy of your echocardiogram was obtained from the hospital as well that was done yesterday and it is reportedly normal as well. The lab test to support a viral underlying infective process. White count is low and normal. Therefore treatment is conservative with plenty of fluids regular diet Tylenol 650 mg every 4-6 hours needed for any kind of fever relief. Taking DayQuil this morning may have precipitated some of your dizziness and feeling like you're going to pass out feelings it can do this if it is rapidly observed through the stomach lining. I would suggest not using this medication any further or if used only with a full stomach.. - My Orders Last 24 Hours: My Active Orders 10/11/17 07:22 Orthostatic Vital Signs [RC] ASDIRECTED 10/11/17 07:23 EKG Documentation Completion [RC] STAT - Assessment/Plan Last 24 Hours: My Active Orders 10/11/17 07:22 Orthostatic Vital Signs [RC] ASDIRECTED 10/11/17 07:23 EKG Documentation Completion [RC] STAT
== END 2017-10-11 10:05 | disposition home or self-care (01) ==
LOC: JD.ED 07:08
DX: B34.9 Viral infection, unspecified (principal)
CPT/HCPCS: 36415; 80053; 84443; 85025; 93005; 93010; 99284-25

== ENCOUNTER 2018-08-27 06:48 | Emergency (ER) | payer BC ==
--- NOTE | 2018-08-27 07:43 | EDM.PDOC ---
ED HPI GENERAL MEDICAL PROBLEM - General Chief Complaint: Syncope Stated Complaint: DIZZY Time Seen by Provider: 08/27/18 07:18 Source of Information: Reports: Patient, RN Notes Reviewed History Limitations: Reports: No Limitations - History of Present Illness INITIAL COMMENTS - FREE TEXT/NARRATIVE: The patient states that he has been feeling lightheaded and off balance for the past 3 days, and that it was "terrible" yesterday, although he is asymptomatic here in the ED. He denies associated shortness of breath or palpitations, but reports that he occasionally has sternal pain. The patient states that he has had similar symptoms on and off for about a year. Review of prior medical records indicates that he has been seen in this ED on 6 prior occasions since 11/22/2016, for similar symptoms. All of his workups have been negative. The patient states that in addition to ED visits, he is also followed up with his PCP who has ordered a MRI and a lumbar puncture , both of which were normal. Here in the ED today, it is noted that the patient's oxygen saturation is 100% on room air. The patient states that he has a history of anxiety, but that it is not treated with any medication. The patient's PCP is Beverley Solano. - Related Data Allergies Allergy/AdvReac Type Severity Reaction Status Date / Time No Known Allergies Allergy Verified 08/27/18 07:04 Home Meds: Home Meds Meclizine HCl 25 mg PO DAILY PRN 05/25/18 [History] Diazepam [Valium] 0 mg PO ASDIRECTED PRN 08/27/18 [History] Past Medical History Psychiatric History: Reports: Anxiety (untreated) Social & Family History - Family History Family Medical History: Noncontributory - Tobacco Use Smoking Status *Q: Never Smoker Second Hand Smoke Exposure: No - Caffeine Use Caffeine Use: Reports: Coffee, Soda Other Caffeine Use: 1xmonth - Alcohol Use Alcohol Use History: Yes Alcohol Use Frequency: Rarely - Recreational Drug Use Recreational Drug Use: No - Living Situation & Occupation Living situation: Reports: Single, Other (With a roommate) Occupation: Employed ([employer]) ED ROS GENERAL - Review of Systems Review Of Systems: ROS reveals no pertinent complaints other than HPI. ED EXAM, DIZZINESS - Physical Exam Exam: See Below Exam Limited By: No Limitations General Appearance: Alert, No Apparent Distress, Thin Eye Exam: Bilateral Eye: EOMI, Normal Inspection Ears: Normal External Exam, Normal Canal, Hearing Grossly Normal, Normal TMs Nose: Normal Inspection, Normal Mucosa, No Blood Throat/Mouth: Normal Inspection, Normal Lips, Normal Teeth, Normal Gums, Normal Oropharynx, Normal Voice, No Airway Compromise Head Exam: Atraumatic, Normocephalic Neck: Normal Inspection, Supple, Non-Tender, Full Range of Motion. No: Lymphadenopathy (L), Lymphadenopathy (R) Respiratory/Chest: No Respiratory Distress, Lungs Clear, Normal Breath Sounds, No Accessory Muscle Use Cardiovascular: Normal Peripheral Pulses, Regular Rate, Rhythm, No Edema, No Gallop, No JVD, No Murmur, No Rub GI/Abdominal: Normal Bowel Sounds, Soft, Non-Tender, No Organomegaly, No Distention, No Abnormal Bruit, No Mass (Male) Exam: Deferred Rectal (Males) Exam: Deferred Neurological: Alert, Normal Dorsiflexion, CN II-XII Intact, Normal Plantar Flexion, No Motor/Sensory Deficits, Oriented x 3 Back Exam: Normal Inspection, Full Range of Motion, NT Extremities: Normal Inspection, Normal Range of Motion, No Pedal Edema, Normal Capillary Refill Psychiatric: Normal Affect Skin Exam: Warm, Dry, Intact, Normal Color, No Rash EKG INTERPRETATION EKG Date: 08/27/18 Time: 07:45 Rhythm: NSR Rate (Beats/Min): 70 Hildreth: Normal P-Wave: Present QRS: Normal (Early transition) ST-T: Normal (J-point elevation, but no ischemic changes) QT: Normal Comparison: No Change (10/11/2017) Course - Vital Signs Last Recorded V/S: Last Vital Signs Temp 36.4 C 08/27/18 07:00 Pulse 86 08/27/18 07:00 Resp 20 08/27/18 07:00 BP 132/91 H 08/27/18 07:00 Pulse Ox 100 08/27/18 07:00 Orthostatic Blood Pressure [ 134/115 Standing] Orthostatic Blood Pressure [ 134/105 Sitting] Orthostatic Blood Pressure [ 132/91 Supine] - Orders/Labs/Meds Orders: Active Orders 24 hr Category Date Time Status EKG Documentation Completion [RC] STAT Care 08/27/18 07:39 Active Orthostatic Vital Signs [RC] STAT Care 08/27/18 07:39 Active Magnesium Sulfate/Water [Magnesium Sulfate 2 GM in Med 08/27/18 08:40 Ordered Water 50 ML] 2 gm Premix Bag 1 bag IV ONETIME Medication Orders Magnesium Sulfate 2 gm/ Premix 50 mls @ 50 mls/hr IV ONETIME ONE Stop: 08/27/18 09:39 Labs: Laboratory Tests 08/27/18 08/27/18 08/27/18 Range/Units 07:39 07:55 07:55 WBC 3.53 L (4.23-9.07) K/mm3 RBC 5.42 (4.63-6.08) M/mm3 Hgb 14.7 (13.7-17.5) gm/L Hct 45.1 (40.1-51.0) % MCV 83.2 (79.0-92.2) fl MCH 27.1 (25.7-32.2) pg MCHC 32.6 (32.2-35.5) g/dl RDW Std Deviation 41.8 (35.1-43.9) fL Plt Count 146 L (163-337) K/mm3 MPV 12.4 H (9.4-12.3) fl Neutrophils % (Manual) 67 H (40-60) % Band Neutrophils % 0 (0-10) % Lymphocytes % (Manual) 22 (20-40) % Atypical Lymphs % 0 % Monocytes % (Manual) 9 (2-10) % Eosinophils % (Manual) 1 (0.8-7.0) % Basophils % (Manual) 1 (0.2-1.2) Platelet Estimate Adequate RBC Morph Comment Normal D-Dimer, Quantitative < 0.19 L (0.19-0.50) mg/L Puncture Site Lt radial ABG pH 7.38 (7.35-7.45) ABG pCO2 43.0 (35.0-45.0) mmHg ABG pO2 93.0 (80.0-100.0) mmHg ABG HCO3 25.0 (22.0-26.0) meq/L ABG O2 Saturation 96.6 (96.0-97.0) % ABG Base Excess 0.2 (-2-2.0) Chin Test Positive O2 Delivery Device Room air FiO2 0.00 L (21.00-100.00) % Sodium (136-145) mEq/L Potassium (3.5-5.1) mEq/L Chloride (98-107) mEq/L Carbon Dioxide (21-32) mEq/L Anion Gap (5-15) BUN (7-18) mg/dL Creatinine (0.7-1.3) mg/dL Est Cr Clr Drug Dosing mL/min Estimated GFR (MDRD) (>60) mL/min BUN/Creatinine Ratio (14-18) Glucose (74-106) mg/dL Calcium (8.5-10.1) mg/dL Magnesium (1.8-2.4) mg/dl Total Bilirubin (0.2-1.0) mg/dL AST (15-37) U/L ALT (16-63) U/L Alkaline Phosphatase (46-116) U/L Troponin I (0.00-0.056) ng/mL Total Protein (6.4-8.2) g/dl Albumin (3.4-5.0) g/dl Globulin gm/dL Albumin/Globulin Ratio (1-2) TSH 3rd Generation (0.358-3.74) uIU/mL 08/27/18 Range/Units 07:55 WBC (4.23-9.07) K/mm3 RBC (4.63-6.08) M/mm3 Hgb (13.7-17.5) gm/L Hct (40.1-51.0) % MCV (79.0-92.2) fl MCH (25.7-32.2) pg MCHC (32.2-35.5) g/dl RDW Std Deviation (35.1-43.9) fL Plt Count (163-337) K/mm3 MPV (9.4-12.3) fl Neutrophils % (Manual) (40-60) % Band Neutrophils % (0-10) % Lymphocytes % (Manual) (20-40) % Atypical Lymphs % % Monocytes % (Manual) (2-10) % Eosinophils % (Manual) (0.8-7.0) % Basophils % (Manual) (0.2-1.2) Platelet Estimate RBC Morph Comment D-Dimer, Quantitative (0.19-0.50) mg/L Puncture Site ABG pH (7.35-7.45) ABG pCO2 (35.0-45.0) mmHg ABG pO2 (80.0-100.0) mmHg ABG HCO3 (22.0-26.0) meq/L ABG O2 Saturation (96.0-97.0) % ABG Base Excess (-2-2.0) Chin Test O2 Delivery Device FiO2 (21.00-100.00) % Sodium 140 (136-145) mEq/L Potassium 4.0 (3.5-5.1) mEq/L Chloride 105 (98-107) mEq/L Carbon Dioxide 30 (21-32) mEq/L Anion Gap 9.0 (5-15) BUN 7 (7-18) mg/dL Creatinine 1.0 (0.7-1.3) mg/dL Est Cr Clr Drug Dosing 92.91 mL/min Estimated GFR (MDRD) > 60 (>60) mL/min BUN/Creatinine Ratio 7.0 L (14-18) Glucose 91 (74-106) mg/dL Calcium 9.2 (8.5-10.1) mg/dL Magnesium 1.5 L (1.8-2.4) mg/dl Total Bilirubin 0.6 (0.2-1.0) mg/dL AST 26 (15-37) U/L ALT 55 (16-63) U/L Alkaline Phosphatase 55 (46-116) U/L Troponin I < 0.017 (0.00-0.056) ng/mL Total Protein 7.6 (6.4-8.2) g/dl Albumin 3.8 (3.4-5.0) g/dl Globulin 3.8 gm/dL Albumin/Globulin Ratio 1.0 (1-2) TSH 3rd Generation 1.669 (0.358-3.74) uIU/mL Meds: Medications Generic Name Dose Route Start Last Admin Trade Name Freq PRN Reason Stop Dose Admin Magnesium Sulfate 2 gm/ Premix 50 mls @ 50 mls/hr 08/27/18 08:40 IV 08/27/18 09:39 ONETIME ONE - Re-Assessments/Exams Free Text/Narrative Re-Assessment/Exam: 08/27/18 07:42 The patient is not orthostatic. I suspect that his symptoms may be due to hyperventilation syndrome, and I have ordered a workup to evaluate for it. 08/27/18 08:16 2-view chest radiograph appears to be grossly normal. The cardiac silhouette is within normal limits. No pulmonary vascular congestion. No pleural effusions. No focal infiltrate. No pneumothorax. Formal read per the Radiologist pending. 08/27/18 08:41 Test results discussed with the patient. Today's workup is entirely unremarkable , with the exception of his magnesium level, found to be low at 1.5, which is not likely to be responsible for his symptoms, as most symptoms from hypomagnesemia are due to other electrolyte abnormalities in response to hypomagnesemia, which the patient does not appear to have. While I cannot prove it, I suspect that the patient's symptoms are due to hyperventilation syndrome, therefore I am recommending that he follow up with his PCP, Beverley Solano, to discuss treatment options for anxiety. For today's purposes, I have ordered a 2 g Mg-rider, after which he can be discharged home. Departure - Departure Time of Disposition: 08:55 Disposition: Home, Self-Care 01 Condition: Good Clinical Impression: Hyperventilation syndrome - Discharge Information *PRESCRIPTION DRUG MONITORING PROGRAM REVIEWED*: Not Applicable *COPY OF PRESCRIPTION DRUG MONITORING REPORT IN PATIENT SKYLAR: Not Applicable Referrals: Beverley Solano PA-C [Primary Care Provider] - Forms: ED Department Discharge Additional Instructions: You were seen in the emergency room for recurrent episodes of dizziness. Workup in the ER included blood work, and arterial blood gas, a chest x-ray, positional blood pressure checks, and an ECG. Your entire workup was unremarkable, with the exception that your magnesium level was found to be low. You were given magnesium replacement through an IV. Based on your history, physical examination, and ER tests, it is most likely that your symptoms are due to hyperventilation syndrome. Hyperventilation syndrome can be caused by a variety of medical problems, all of which were ruled out in your case, but is most commonly caused by anxiety. We recommend that you follow-up with your PCP, Beverley Solano, to discuss treatment options for anxiety. If any other problems, please do not hesitate to return to the ER. - My Orders Last 24 Hours: My Active Orders 08/27/18 07:39 EKG Documentation Completion [RC] STAT Orthostatic Vital Signs [RC] STAT 08/27/18 08:40 Magnesium Sulfate/Water [Magnesium Sulfate 2 GM in Water 50 ML] 2 gm Premix Bag 1 bag IV ONETIME - Assessment/Plan Last 24 Hours: My Active Orders 08/27/18 07:39 EKG Documentation Completion [RC] STAT Orthostatic Vital Signs [RC] STAT 08/27/18 08:40 Magnesium Sulfate/Water [Magnesium Sulfate 2 GM in Water 50 ML] 2 gm Premix Bag 1 bag IV ONETIME
[2018-08-27] MEDS ORDERED: Magnesium Sulfate/Water 2 GM in Premix Bag 1 BAG IV ONE (08:40)
--- NOTE | 2018-08-27 08:53 | CR ---
Chest: Two views of the chest were obtained. Comparison: Prior chest x-ray of 05/25/18. Heart size and mediastinum are normal. Lungs are clear with no acute parenchymal change. Diaphragms are slightly flattened on the lateral view suggesting mild hyperinflation. Impression: 1. Lungs are slightly hyperinflated. Nothing acute is otherwise seen on chest x-ray. Diagnostic code #2
[2018-08-27 09:56] VITALS: BP 111/75
== END 2018-08-27 09:55 | disposition home or self-care (01) ==
LOC: JD.ED 06:48
DX: F45.8 Other somatoform disorders (principal); Z79.899 Other long term (current) drug therapy
CPT/HCPCS: 36415; 36600; 71046; 80053; 82803; 83735; 84443; 84484; 85007; 85027; 85379; 93005; 96365; 99284; J3475; 93010

== ENCOUNTER 2018-10-30 14:22 | Emergency (ER) | payer BC ==
[2018-10-30] MEDS ORDERED: Sodium Chloride 0.9% 10 ML Syringe FLUSH PRN (14:58)
[2018-10-30] MEDS ORDERED: Sodium Chloride 0.9% 1,000 ML IV ONE (15:01)
--- NOTE | 2018-10-30 15:01 | EDM.PDOC ---
ED HPI GENERAL MEDICAL PROBLEM - General Chief Complaint: General Stated Complaint: BLOOD IS THICK ACCORDING TO CLINIC Time Seen by Provider: 10/30/18 14:36 Source of Information: Reports: Patient, Old Records, RN Notes Reviewed History Limitations: Reports: No Limitations - History of Present Illness INITIAL COMMENTS - FREE TEXT/NARRATIVE: Patient is a 28-year-old male of -[place] descent that presents to the ED today for the evaluation of thick blood. The patient notes he has had a few visits here within the last year, for dizziness. The patient states that he has been seeing his primary care provider, Beverley Solano and has been dealing with vertigo like symptoms. The patient states that he has had an appointment at the [facility] today, with Dr. Fink, he states that some blood work was done, and the leather patcher commented that his blood was very sick. The patient states that he has an appointment in roughly 4 weeks to get the results of his lab work. He states he has also been worked up by neurology, with lumbar punctures and CTs, and all of his neuro checks come back fine. Beverley Solano has been treating him with Antivert for his dizziness symptoms. He states that in prior times he felt a little bit nauseous with his balance feeling a little bit off as well. At today's ED visit he denies any nausea, vomiting, fever/ chills, chest pain, shortness of breath. He states that he has just been having some mild anxiety, but he states that he is not taking any medications for this. - Related Data Allergies Allergy/AdvReac Type Severity Reaction Status Date / Time No Known Allergies Allergy Verified 08/27/18 07:04 Home Meds: Home Meds Meclizine HCl 25 mg PO DAILY PRN 05/25/18 [History] Diazepam [Valium] 0 mg PO ASDIRECTED PRN 08/27/18 [History] Past Medical History - Past Health History Medical/Surgical History: Denies Medical/Surgical History Gastrointestinal History: Reports: Helicobacter Pylori Other Gastrointestinal History: states bm today was black Neurological History: Reports: Headaches, Chronic Psychiatric History: Reports: Anxiety Social & Family History - Family History Family Medical History: Noncontributory - Tobacco Use Smoking Status *Q: Never Smoker - Caffeine Use Caffeine Use: Reports: None Other Caffeine Use: 1xmonth - Recreational Drug Use Recreational Drug Use: No - Living Situation & Occupation Living situation: Reports: Single Occupation: Employed ([employer]) ED ROS GENERAL - Review of Systems Review Of Systems: See Below Constitutional: Denies: Fever, Chills HEENT: Reports: Vertigo Respiratory: Reports: No Symptoms Cardiovascular: Reports: No Symptoms Endocrine: Reports: No Symptoms GI/Abdominal: Reports: No Symptoms : Reports: No Symptoms Musculoskeletal: Reports: No Symptoms Skin: Reports: No Symptoms Neurological: Reports: Dizziness. Denies: Headache, Numbness, Syncope, Tingling , Difficulty Walking, Gait Disturbance Psychiatric: Reports: Anxiety Hematologic/Lymphatic: Reports: No Symptoms ED EXAM, GENERAL - Physical Exam Exam: See Below Exam Limited By: No Limitations General Appearance: Alert, WD/WN, No Apparent Distress Eye Exam: Bilateral Eye: EOMI, Normal Inspection, PERRL Ears: Normal External Exam, Normal Canal, Hearing Grossly Normal, Normal TMs Nose: Normal Inspection, Normal Mucosa, No Blood Throat/Mouth: Normal Inspection, Normal Lips, Normal Teeth, Normal Gums, Normal Oropharynx, Normal Voice, No Airway Compromise Head: Atraumatic, Normocephalic Neck: Normal Inspection, Supple, Non-Tender, Full Range of Motion Respiratory/Chest: No Respiratory Distress, Lungs Clear, Normal Breath Sounds, No Accessory Muscle Use, Chest Non-Tender Cardiovascular: Normal Peripheral Pulses, Regular Rate, Rhythm, No Murmur GI/Abdominal: Normal Bowel Sounds, Soft, Non-Tender, No Distention, No Mass Extremities: Normal Inspection, Normal Capillary Refill Neurological: Alert, Oriented, Normal Cognition, Normal Gait, Normal Reflexes, No Motor/Sensory Deficits Psychiatric: Normal Affect, Normal Mood Skin Exam: Warm, Dry, Intact, Normal Color, No Rash Course - Vital Signs Last Recorded V/S: Last Vital Signs Temp 98.1 F 10/30/18 14:28 Pulse 88 10/30/18 14:28 Resp 20 10/30/18 14:28 BP 127/92 H 10/30/18 14:28 Pulse Ox 100 10/30/18 14:28 - Orders/Labs/Meds Orders: Active Orders 24 hr Category Date Time Status Peripheral IV Care [RC] . DIRECTED Care 10/30/18 15:00 Active Sodium Chloride 0.9% [Saline Flush] Med 10/30/18 14:58 Active 10 ml FLUSH ASDIRECTED PRN Peripheral IV Insertion Adult [OM.PC] Routine Oth 10/30/18 14:58 Ordered Medication Orders Sodium Chloride (Saline Flush) 10 ml FLUSH ASDIRECTED PRN PRN Reason: Keep Vein Open Last Admin: 10/30/18 15:35 Dose: 10 ml Labs: Laboratory Tests 10/30/18 10/30/18 Range/Units 15:35 15:35 WBC 5.73 (4.23-9.07) K/mm3 RBC 5.46 (4.63-6.08) M/mm3 Hgb 15.1 (13.7-17.5) gm/L Hct 45.0 (40.1-51.0) % MCV 82.4 (79.0-92.2) fl MCH 27.7 (25.7-32.2) pg MCHC 33.6 (32.2-35.5) g/dl RDW Std Deviation 40.9 (35.1-43.9) fL Plt Count 156 L (163-337) K/mm3 MPV 12.5 H (9.4-12.3) fl Neutrophils % (Manual) 72 H (40-60) % Band Neutrophils % 0 (0-10) % Lymphocytes % (Manual) 23 (20-40) % Atypical Lymphs % 0 % Monocytes % (Manual) 4 (2-10) % Eosinophils % (Manual) 0 L (0.8-7.0) % Basophils % (Manual) 1 (0.2-1.2) Platelet Estimate Adequate RBC Morph Comment Normal Sodium 139 (136-145) mEq/L Potassium 3.8 (3.5-5.1) mEq/L Chloride 103 (98-107) mEq/L Carbon Dioxide 30 (21-32) mEq/L Anion Gap 9.8 (5-15) BUN 7 (7-18) mg/dL Creatinine 0.9 (0.7-1.3) mg/dL Est Cr Clr Drug Dosing 97.53 mL/min Estimated GFR (MDRD) > 60 (>60) mL/min BUN/Creatinine Ratio 7.8 L (14-18) Glucose 99 (74-106) mg/dL Calcium 9.6 (8.5-10.1) mg/dL Total Bilirubin 0.6 (0.2-1.0) mg/dL AST 24 (15-37) U/L ALT 44 (16-63) U/L Alkaline Phosphatase 51 (46-116) U/L Total Protein 7.8 (6.4-8.2) g/dl Albumin 4.2 (3.4-5.0) g/dl Globulin 3.6 gm/dL Albumin/Globulin Ratio 1.2 (1-2) Meds: Medications Generic Name Dose Route Start Last Admin Trade Name Freq PRN Reason Stop Dose Admin Sodium Chloride 10 ml 10/30/18 14:58 10/30/18 15:35 Saline Flush FLUSH 10 ml ASDIRECTED PRN Administration Keep Vein Open Discontinued Medications Generic Name Dose Route Start Last Admin Trade Name Freq PRN Reason Stop Dose Admin Sodium Chloride 1,000 mls @ 999 mls/hr 10/30/18 15:01 10/30/18 15:41 Normal Saline IV 10/30/18 16:01 999 mls/hr ASDIRECTED ONE Administration - Re-Assessments/Exams Free Text/Narrative Re-Assessment/Exam: 10/30/18 15:11 Patient presents to the ED for evaluation of his blood being too sick. The wine steward/stewardess was unable to get any results from the gentleman's blood test today, as these were done by retail sales specialist and that the labs are sent notes and will take him time to results. I have ordered a CBC with manual differential, and some IV fluids to help hydration, as I do not believe that he gets adequate hydration during the day. I did let the patient know that sometimes laboratory evaluation takes a little bit more time at the same clinic visit. I do believe that his dizziness are result of vertigo, and will not change treatment at this time. He does have meclizine at home for these symptoms. We'll recommend that he takes these at home as needed for symptoms of vertigo. 10/30/18 15:55 Pt initial CBC is done, his WBC is 5.7 today, and on 08/27/18 it was 3.5. Pending a normal diff, I will advise him to increase oral fluid intake, and f/u with his PCP and Dr. Fink regarding his lab work done at [place] today, there is no acute abnormality present in the ED today. He will be advised to take his meclizine PRN for vertigo/dizziness symptoms. 10/30/18 17:01 Patient's CMP is done and is also within normal limits. Patient will be discharged home with instructions as directed above. Departure - Departure Time of Disposition: 17:01 Disposition: Home, Self-Care 01 Condition: Fair Clinical Impression: Dizziness - Discharge Information *PRESCRIPTION DRUG MONITORING PROGRAM REVIEWED*: No *COPY OF PRESCRIPTION DRUG MONITORING REPORT IN PATIENT SKYLAR: No Instructions: Vertigo, [id number] Referrals: Beverley Solano PA-C [Primary Care Provider] - Forms: ED Department Discharge Additional Instructions: You have been evaluated in the ED today for your dizziness. Your labs were within normal limits at today's ED visit, Your dizziness is likely due to vertigo, please take your meclizine as needed, and as previously directed by your primary care provider. You have been given IV fluids today in the ER for hydration this should help alleviate some of the dizziness symptoms as well. Please wait for your lab results done by the nuclear engineering technician/oncologist, Dr. Fink. Please return to the ED if your symptoms should change or worsen. - My Orders Last 24 Hours: My Active Orders 10/30/18 14:58 Sodium Chloride 0.9% [Saline Flush] 10 ml FLUSH ASDIRECTED PRN Peripheral IV Insertion Adult [OM.PC] Routine 10/30/18 15:00 Peripheral IV Care [RC] . DIRECTED - Assessment/Plan Last 24 Hours: My Active Orders 10/30/18 14:58 Sodium Chloride 0.9% [Saline Flush] 10 ml FLUSH ASDIRECTED PRN Peripheral IV Insertion Adult [OM.PC] Routine 10/30/18 15:00 Peripheral IV Care [RC] . DIRECTED
[2018-10-30 17:18] VITALS: BP 133/82
== END 2018-10-30 17:10 | disposition home or self-care (01) ==
LOC: JD.ED 14:22
DX: R42 Dizziness and giddiness (principal)
CPT/HCPCS: 36415; 80053; 85007; 85027; 96360; 99284; J7040; 99283

== ENCOUNTER 2019-05-29 10:39 | Emergency (ER) | payer BC ==
[2019-05-29 10:54] VITALS: BP 149/93; PULSE 115
--- NOTE | 2019-05-29 11:56 | EDM.PDOC ---
ED HPI GENERAL MEDICAL PROBLEM - General Chief Complaint: General Stated Complaint: FEELS WEIRD Time Seen by Provider: 05/29/19 10:52 Source of Information: Reports: Patient History Limitations: Reports: No Limitations - History of Present Illness INITIAL COMMENTS - FREE TEXT/NARRATIVE: The patient presents because he feels "weird." He said this happened last night and again this morning. He felt anxious. He has a hard time explaining what he felt but he had no headache, fever, chills, cough, sore throat, chest pain, shortness of breath, abdominal pain, nausea or vomiting. He says for the past couple of days he had some constipation but he has no pain now. He has no dysuria or diarrhea. Onset: Sudden Duration: Day(s): (last night) Severity: Mild Improves with: Reports: None Worsens with: Reports: None Associated Symptoms: Reports: No Other Symptoms - Related Data Allergies Allergy/AdvReac Type Severity Reaction Status Date / Time No Known Allergies Allergy Verified 05/29/19 10:54 Home Meds: Home Meds . [No Known Home Meds] 05/29/19 [History] Past Medical History - Past Health History Medical/Surgical History: Denies Medical/Surgical History Gastrointestinal History: Reports: Helicobacter Pylori Other Gastrointestinal History: states bm today was black Neurological History: Reports: Headaches, Chronic Psychiatric History: Reports: Anxiety Social & Family History - Family History Family Medical History: Noncontributory - Tobacco Use Smoking Status *Q: Never Smoker - Caffeine Use Caffeine Use: Reports: None Other Caffeine Use: 1xmonth - Living Situation & Occupation Living situation: Reports: Single Occupation: Employed ([employer]) ED ROS GENERAL - Review of Systems Review Of Systems: See Below Constitutional: Reports: No Symptoms HEENT: Reports: No Symptoms Respiratory: Reports: No Symptoms Cardiovascular: Reports: No Symptoms Endocrine: Reports: No Symptoms GI/Abdominal: Reports: No Symptoms : Reports: No Symptoms Musculoskeletal: Reports: No Symptoms Skin: Reports: No Symptoms Psychiatric: Reports: Anxiety ED EXAM, GENERAL - Physical Exam Exam: See Below Exam Limited By: No Limitations General Appearance: Alert, No Apparent Distress Ears: Normal External Exam Nose: Normal Inspection Head: Atraumatic, Normocephalic Neck: Normal Inspection, Supple, Non-Tender Respiratory/Chest: No Respiratory Distress, Lungs Clear, Normal Breath Sounds Cardiovascular: Regular Rate, Rhythm, No Edema, No Murmur GI/Abdominal: Soft, Non-Tender, No Organomegaly, No Mass Back Exam: Normal Inspection Extremities: Normal Inspection Course - Vital Signs Last Recorded V/S: Last Vital Signs Temp 97.6 F 05/29/19 10:51 Pulse 115 H 05/29/19 10:51 Resp 16 05/29/19 10:51 BP 149/93 H 05/29/19 10:51 Pulse Ox 100 05/29/19 10:51 - Orders/Labs/Meds Labs: Laboratory Tests 05/29/19 05/29/19 Range/Units 11:36 11:36 WBC 3.25 L (4.23-9.07) K/mm3 RBC 5.48 (4.63-6.08) M/mm3 Hgb 15.0 (13.7-17.5) gm/dl Hct 45.1 (40.1-51.0) % MCV 82.3 (79.0-92.2) fl MCH 27.4 (25.7-32.2) pg MCHC 33.3 (32.2-35.5) g/dl RDW Std Deviation 39.4 (35.1-43.9) fL Plt Count 214 (163-337) K/mm3 MPV 11.4 (9.4-12.3) fl Neut % (Auto) 49.2 (34.0-67.9) % Lymph % (Auto) 42.5 (21.8-53.1) % Rock % (Auto) 6.8 (5.3-12.2) % Eos % (Auto) 0.3 L (0.8-7.0) Baso % (Auto) 0.9 (0.1-1.2) % Neut # (Auto) 1.60 L (1.78-5.38) K/mm3 Lymph # (Auto) 1.38 (1.32-3.57) K/mm3 Rock # (Auto) 0.22 L (0.30-0.82) K/mm3 Eos # (Auto) 0.01 L (0.04-0.54) K/mm3 Baso # (Auto) 0.03 (0.01-0.08) K/mm3 Sodium 139 (136-145) mEq/L Potassium 3.9 (3.5-5.1) mEq/L Chloride 102 (98-107) mEq/L Carbon Dioxide 28 (21-32) mEq/L Anion Gap 12.9 (5-15) BUN 4 L (7-18) mg/dL Creatinine 0.9 (0.7-1.3) mg/dL Est Cr Clr Drug Dosing 101.92 mL/min Estimated GFR (MDRD) > 60 (>60) mL/min BUN/Creatinine Ratio 4.4 L (14-18) Glucose 84 (74-106) mg/dL Calcium 9.3 (8.5-10.1) mg/dL Total Bilirubin 0.6 (0.2-1.0) mg/dL AST 28 (15-37) U/L ALT 54 (16-63) U/L Alkaline Phosphatase 65 (46-116) U/L Total Protein 8.1 (6.4-8.2) g/dl Albumin 4.2 (3.4-5.0) g/dl Globulin 3.9 gm/dL Albumin/Globulin Ratio 1.1 (1-2) TSH 3rd Generation 1.198 (0.358-3.74) uIU/mL - Re-Assessments/Exams Free Text/Narrative Re-Assessment/Exam: 05/29/19 11:57 I ordered labs. 05/29/19 12:26 His labs all look good. I will have him try some magnesium citrate to help with the constipation. Departure - Departure Time of Disposition: 12:30 Disposition: Home, Self-Care 01 Condition: Good Clinical Impression: Constipation Qualifiers: Constipation type: other constipation type Qualified Code(s): K59.09 - Other constipation - Discharge Information *PRESCRIPTION DRUG MONITORING PROGRAM REVIEWED*: Not Applicable *COPY OF PRESCRIPTION DRUG MONITORING REPORT IN PATIENT SKYLAR: Not Applicable Referrals: Beverley Solano PA-C [Primary Care Provider] - 1 Week Forms: ED Department Discharge Additional Instructions: Drink plenty of fluids. Take magnesium citrate to help have a bowel movement. Follow the directions on the bottle. Please return if you are worse. Sepsis Event Note - Evaluation Sepsis Screening Result: No Definite Risk - Focused Exam Vital Signs: Vital Signs Temp Pulse Resp BP Pulse Ox 05/29/19 10:51 97.6 F 115 H 16 149/93 H 100 Date Exam was Performed: 05/29/19 Time Exam was Performed: 12:26
== END 2019-05-29 13:21 | disposition home or self-care (01) ==
LOC: JD.ED 10:39
DX: K59.09 Other constipation (principal)
CPT/HCPCS: 36415; 80053; 84443; 85025; 99282; 99283

== ENCOUNTER 2019-06-12 15:21 | Emergency (ER) | payer BC ==
[2019-06-12 15:35] VITALS: BP 160/102; PULSE 104
[2019-06-12] MEDS ORDERED: LORazepam 2 MG/ML SDV IVPUSH ONE (15:51)
[2019-06-12] MEDS ORDERED: Sodium Chloride 0.9% 1,000 ML IV ONE (15:51)
[2019-06-12] MEDS ORDERED: Sodium Chloride 0.9% 10 ML Syringe FLUSH PRN (15:51)
--- NOTE | 2019-06-12 16:32 | EDM.PDOC ---
ED HPI GENERAL MEDICAL PROBLEM - General Chief Complaint: Respiratory Problem Stated Complaint: DIZZINESS/WEAK Time Seen by Provider: 06/12/19 15:35 Source of Information: Reports: Patient - History of Present Illness INITIAL COMMENTS - FREE TEXT/NARRATIVE: Patient is a 29-year-old male presents to the ED today complaining of dizziness and weakness. States today he has been experiencing some episodic dizziness. Symptoms come and go. He states he's been dealing with a upper respiratory infection with sinus congestion, runny nose for the past few days and has been taking NyQuil. States last night he took NyQuil and noted the symptoms thereafter. Patient has been eating and drinking well. States at times he does feel short of breath but questions is not related to his anxiety. In addition at times experience some intermittent chest pain but also suspect this is related to his anxiety. Upon admission to the ED today he is feeling very anxious. The dizziness has resolved with admission to the ED. There's been no documented fever. He denies any sensation of the room spinning. Denies any headache, vision changes, focal neurologic deficits, nausea vomiting, diaphoresis, abdominal pain, diarrhea, bloody stools, Dr. stools, dysuria, pain or swelling to his lower extremities, and/or any additional complaints. Is not been using any excessive amounts of alcohol. He does not use any drugs. Patient does not smoke as well. Of note patient has been seen multiple times in the emergency department with essentially normal workups. Patient does have a history of anxiety is not treated. He states that may be the culprit. - Related Data Allergies Allergy/AdvReac Type Severity Reaction Status Date / Time No Known Allergies Allergy Verified 06/12/19 15:30 Home Meds: Home Meds . [No Known Home Meds] 05/29/19 [History] Past Medical History - Past Health History Medical/Surgical History: Denies Medical/Surgical History Gastrointestinal History: Reports: Helicobacter Pylori Other Gastrointestinal History: states bm today was black Neurological History: Reports: Headaches, Chronic Psychiatric History: Reports: Anxiety Social & Family History - Family History Family Medical History: Noncontributory - Tobacco Use Smoking Status *Q: Never Smoker - Caffeine Use Caffeine Use: Reports: None Other Caffeine Use: 1xmonth - Recreational Drug Use Recreational Drug Use: No - Living Situation & Occupation Living situation: Reports: Single Occupation: Employed ([employer]) ED ROS GENERAL - Review of Systems Review Of Systems: Comprehensive ROS is negative, except as noted in HPI. ED EXAM, GENERAL - Physical Exam Exam: See Below Exam Limited By: Other (anxious) General Appearance: Alert, WD/WN, Anxious Eye Exam: Bilateral Eye: Normal Inspection, Nystagmus (none noted. ), PERRL Ears: Hearing Grossly Normal Ear Exam: Bilateral Ear: Auricle Normal, Canal Normal, TM normal Nose: Normal Inspection, Nasal Swelling, Nasal Drainage, Clear Rhinorrhea Throat/Mouth: Normal Inspection, Normal Oropharynx, Normal Voice, No Airway Compromise Head: Atraumatic, Normocephalic Neck: Normal Inspection, Supple, Non-Tender, Full Range of Motion. No: Lymphadenopathy (L), Lymphadenopathy (R) Respiratory/Chest: No Respiratory Distress, Lungs Clear, Normal Breath Sounds, No Accessory Muscle Use, Chest Non-Tender Cardiovascular: Normal Peripheral Pulses, No Murmur, Tachycardia Peripheral Pulses: 2+: Radial (L), Radial (R) GI/Abdominal: Normal Bowel Sounds, Soft, Non-Tender, No Organomegaly, No Distention Back Exam: Normal Inspection Extremities: Normal Inspection, Normal Range of Motion, Non-Tender, No Pedal Edema Neurological: Alert, Oriented, CN II-XII Intact, Normal Cognition, No Motor/ Sensory Deficits Psychiatric: Normal Affect, Anxious Skin Exam: Warm, Dry, Normal Color, No Rash Course - Vital Signs Last Recorded V/S: Last Vital Signs Temp 98.1 F 06/12/19 15:30 Pulse 104 H 06/12/19 15:30 Resp BP 160/102 H 06/12/19 15:30 Pulse Ox 100 06/12/19 15:30 - Orders/Labs/Meds Orders: Active Orders 24 hr Category Date Time Status EKG Documentation Completion [RC] STAT Care 06/12/19 15:51 Active Peripheral IV Care [RC] . DIRECTED Care 06/12/19 15:52 Active Chest 1V Frontal [CR] Stat Exams 06/12/19 15:51 Taken Peripheral IV Insertion Adult [OM.PC] Routine Oth 06/12/19 15:51 Ordered Labs: Laboratory Tests 06/12/19 06/12/19 06/12/19 Range/Units 15:50 15:50 15:50 WBC 6.28 (4.23-9.07) K/mm3 RBC 5.39 (4.63-6.08) M/mm3 Hgb 14.7 (13.7-17.5) gm/dl Hct 44.9 (40.1-51.0) % MCV 83.3 (79.0-92.2) fl MCH 27.3 (25.7-32.2) pg MCHC 32.7 (32.2-35.5) g/dl RDW Std Deviation 41.0 (35.1-43.9) fL Plt Count 176 (163-337) K/mm3 MPV 12.2 (9.4-12.3) fl Neutrophils % (Manual) 33 L (40-60) % Band Neutrophils % 0 (0-10) % Lymphocytes % (Manual) 62 H (20-40) % Atypical Lymphs % 0 % Monocytes % (Manual) 3 (2-10) % Eosinophils % (Manual) 2 (0.8-7.0) % Basophils % (Manual) 0 L (0.2-1.2) Platelet Estimate Adequate RBC Morph Comment Normal D-Dimer, Quantitative < 0.19 L (0.19-0.50) mg/L Sodium 138 (136-145) mEq/L Potassium 3.1 L (3.5-5.1) mEq/L Chloride 101 (98-107) mEq/L Carbon Dioxide 26 (21-32) mEq/L Anion Gap 14.1 (5-15) BUN 8 (7-18) mg/dL Creatinine 1.1 (0.7-1.3) mg/dL Est Cr Clr Drug Dosing 83.39 mL/min Estimated GFR (MDRD) > 60 (>60) mL/min BUN/Creatinine Ratio 7.3 L (14-18) Glucose 164 H (74-106) mg/dL Calcium 8.8 (8.5-10.1) mg/dL Total Bilirubin 0.4 (0.2-1.0) mg/dL AST 19 (15-37) U/L ALT 38 (16-63) U/L Alkaline Phosphatase 70 (46-116) U/L Troponin I < 0.017 (0.00-0.056) ng/mL C-Reactive Protein 0.9 (<1.0) mg/dL Total Protein 7.8 (6.4-8.2) g/dl Albumin 3.9 (3.4-5.0) g/dl Globulin 3.9 gm/dL Albumin/Globulin Ratio 1.0 (1-2) Urine Color (Yellow) Urine Appearance (Clear) Urine pH (5.0-8.0) Ur Specific [place] (1.005-1.030) Urine Protein (Negative) Urine Glucose (UA) (Negative) Urine Ketones (Negative) Urine Occult Blood (Negative) Urine Nitrite (Negative) Urine Bilirubin (Negative) Urine Urobilinogen (0.2-1.0) Ur Leukocyte Esterase (Negative) Urine RBC (0-5) /hpf Urine WBC (0-5) /hpf Ur Squamous Epith Cells (0-5) /hpf Urine Bacteria (FEW) /hpf Urine Mucus (FEW) /hpf Urine Opiates Screen (KPYXWD=087) Ur Buprenorphine Scrn (CUTOFF=10) Ur Oxycodone Screen (VSZ6XW=304) Urine Methadone Screen (CPA4YL=527) Ur Propoxyphene Screen (OLIPAD=446) Ur Barbiturates Screen (YINXPB=803) Ur Tricyclics Screen (WUWNST=338) Ur Phencyclidine Scrn (CUTOFF=25) Ur Amphetamine Screen (LQKPCR=119) U Methamphetamines Scrn (SOMXOK=368) U Benzodiazepines Scrn (DDZMKO=703) U Cocaine Metab Screen (BUBFFK=873) U Marijuana (THC) Screen (CUTOFF=50) 06/12/19 06/12/19 Range/Units 16:00 16:00 WBC (4.23-9.07) K/mm3 RBC (4.63-6.08) M/mm3 Hgb (13.7-17.5) gm/dl Hct (40.1-51.0) % MCV (79.0-92.2) fl MCH (25.7-32.2) pg MCHC (32.2-35.5) g/dl RDW Std Deviation (35.1-43.9) fL Plt Count (163-337) K/mm3 MPV (9.4-12.3) fl Neutrophils % (Manual) (40-60) % Band Neutrophils % (0-10) % Lymphocytes % (Manual) (20-40) % Atypical Lymphs % % Monocytes % (Manual) (2-10) % Eosinophils % (Manual) (0.8-7.0) % Basophils % (Manual) (0.2-1.2) Platelet Estimate RBC Morph Comment D-Dimer, Quantitative (0.19-0.50) mg/L Sodium (136-145) mEq/L Potassium (3.5-5.1) mEq/L Chloride (98-107) mEq/L Carbon Dioxide (21-32) mEq/L Anion Gap (5-15) BUN (7-18) mg/dL Creatinine (0.7-1.3) mg/dL Est Cr Clr Drug Dosing mL/min Estimated GFR (MDRD) (>60) mL/min BUN/Creatinine Ratio (14-18) Glucose (74-106) mg/dL Calcium (8.5-10.1) mg/dL Total Bilirubin (0.2-1.0) mg/dL AST (15-37) U/L ALT (16-63) U/L Alkaline Phosphatase (46-116) U/L Troponin I (0.00-0.056) ng/mL C-Reactive Protein (<1.0) mg/dL Total Protein (6.4-8.2) g/dl Albumin (3.4-5.0) g/dl Globulin gm/dL Albumin/Globulin Ratio (1-2) Urine Color Yellow (Yellow) Urine Appearance Clear (Clear) Urine pH 7.0 (5.0-8.0) Ur Specific [place] 1.020 (1.005-1.030) Urine Protein Negative (Negative) Urine Glucose (UA) Negative (Negative) Urine Ketones Negative (Negative) Urine Occult Blood Negative (Negative) Urine Nitrite Negative (Negative) Urine Bilirubin Negative (Negative) Urine Urobilinogen 0.2 (0.2-1.0) Ur Leukocyte Esterase Negative (Negative) Urine RBC Not seen (0-5) /hpf Urine WBC Not seen (0-5) /hpf Ur Squamous Epith Cells Not seen (0-5) /hpf Urine Bacteria Occasional (FEW) /hpf Urine Mucus Not seen (FEW) /hpf Urine Opiates Screen Presumptive positive H (QENBXW=940) Ur Buprenorphine Scrn Negative (CUTOFF=10) Ur Oxycodone Screen Negative (RRV2SN=885) Urine Methadone Screen Negative (OMV0VZ=462) Ur Propoxyphene Screen Negative (FCCNKZ=941) Ur Barbiturates Screen Negative (GLRHBY=668) Ur Tricyclics Screen Negative (YXCRGZ=481) Ur Phencyclidine Scrn Negative (CUTOFF=25) Ur Amphetamine Screen Negative (XKPBCK=444) U Methamphetamines Scrn Negative (KXGXPU=002) U Benzodiazepines Scrn Negative (XZLIWQ=785) U Cocaine Metab Screen Negative (XSPDVH=392) U Marijuana (THC) Screen Negative (CUTOFF=50) Meds: Medications Discontinued Medications Generic Name Dose Route Start Last Admin Trade Name Freq PRN Reason Stop Dose Admin Sodium Chloride 1,000 mls @ 999 mls/hr 06/12/19 15:51 06/12/19 15:59 Normal Saline IV 06/12/19 16:51 999 mls/hr ONETIME ONE Administration Lorazepam 0.5 mg 06/12/19 15:51 06/12/19 15:59 Ativan IVPUSH 06/12/19 15:52 0.5 mg ONETIME ONE Administration Potassium Chloride 40 meq 06/12/19 16:37 06/12/19 16:41 Klor-Con 10 PO 06/12/19 16:38 40 meq ONETIME ONE Administration Sodium Chloride 10 ml 06/12/19 15:51 06/12/19 15:59 Saline Flush FLUSH 10 ml ASDIRECTED PRN Administration Keep Vein Open - Re-Assessments/Exams Free Text/Narrative Re-Assessment/Exam: On exam patient's blood pressure 142/103, heart rate 99, rest rate 16, SPO2 100 % on room air. Patient appears to be anxious. He is slightly tremulous. He is afebrile upon admission to the ED. Orthostatic vi were negative. Patient felt slightly dizzy with body position changes but quickly resolved. There was no nystagmus or worsening symptoms with turning his head left to right while laying down. Denies any sensation the room spinning. He is slightly short of breath at times with some intermittent chest discomfort. He's been seen multiple times for anxiety. Patient states he is feeling really anxious at this time. Denies any recent alcohol use. Denies any drug use. States he's had some sinus congestion postnasal drip and a slight cough. He is on no medications for anxiety. He is not using any caffeine excessively. IV established with IV fluids, Zofran, and also Ativan. Initial labs and studies include:CBC, chem 14, CRP, urine drug screen, troponin, urinalysis,and DDimer. CXR ordered as well. EKG: SR rate of [address] changes noted. CXR impression: no acute findings noted. Final interpretation is pending. Labs reviewed: Sodium 138, potassium 3.1, CO2 26, at 1.1, troponin normal, CRP normal. CBC essentially normal. D-dimer within normal limits. Potassium replacement ordered. 06/12/19 17:48 reassessment, patient resting complaining bed. States the dizziness has resolved after the above therapies. He is ready be discharged home. I suspect the dizziness is a combination of having upper respiratory symptoms, NyQuil use, and also being very anxious. I asked the patient to stop using the NyQuil and establish with PCP to be treated for anxiety. Patient agrees and will do so this week. Return precautions discussed with the patient. He had no further questions or concerns. Discharge instructions as documented. Departure - Departure Time of Disposition: 17:50 Disposition: Home, Self-Care 01 Condition: Good Clinical Impression: Hypokalemia, Dizziness Hypertension Qualifiers: Hypertension type: unspecified Qualified Code(s): I10 - Essential (primary) hypertension URI (upper respiratory infection) Qualifiers: URI type: unspecified URI Qualified Code(s): J06.9 - Acute upper respiratory infection, unspecified - Discharge Information Instructions: How to Take Your Blood Pressure, DASH Eating Plan, Preventing Hypertension, Dizziness, [id number], Viral Respiratory Infection Referrals: PCP,None [Primary Care Provider] - Forms: ED Department Discharge, ED Return to Work/School Form Additional Instructions: Establish care with a primary care provider to have repeat blood work to ensure potassium levels have increased. In addition to discuss treatment for anxiety. I suspect cause of recent dizziness is secondary to upper respiratory infection , NyQuil use, and also being very anxious. Dizziness is a common reaction with taking NyQuil. May utilize [id number] nasal saline spray for congestion during the day. Push the fluids. Ensure adequate rest. May utilize Tylenol and ibuprofen as well for any discomfort. In addition blood pressure was elevated with admission to the ED. Please have a blood pressure checked weekly for the next 3 weeks. Really educational material on blood pressure retention. For potassium replacement eat fruit and leafy vegetables. Use use gatorade or powerade as well. No driving this evening since receiving a sedative medication. Return to the E.D. if you develop any new or worsening symptoms. Sepsis Event Note - Evaluation Sepsis Screening Result: No Definite Risk - Focused Exam Vital Signs: Vital Signs Temp Pulse BP Pulse Ox 06/12/19 15:30 98.1 F 104 H 160/102 H 100 Date Exam was Performed: 06/12/19 Time Exam was Performed: 20:51 - My Orders Last 24 Hours: My Active Orders 06/12/19 15:51 EKG Documentation Completion [RC] STAT Chest 1V Frontal [CR] Stat Peripheral IV Insertion Adult [OM.PC] Routine 06/12/19 15:52 Peripheral IV Care [RC] . DIRECTED - Assessment/Plan Last 24 Hours: My Active Orders 06/12/19 15:51 EKG Documentation Completion [RC] STAT Chest 1V Frontal [CR] Stat Peripheral IV Insertion Adult [OM.PC] Routine 06/12/19 15:52 Peripheral IV Care [RC] . DIRECTED
[2019-06-12] MEDS ORDERED: Potassium Chloride 10 MEQ Tab.ER PO ONE (16:37)
--- NOTE | 2019-06-13 07:25 | CR ---
Chest: Portable view of the chest was obtained. Comparison: Prior chest x-ray of 08/27/18. Heart size and mediastinum are normal. Lungs are clear. Bony structures are unremarkable. Impression: 1. Nothing acute is seen on portable chest x-ray. Diagnostic code #1 This report was dictated in [place] Standard Time
== END 2019-06-12 18:05 | disposition home or self-care (01) ==
LOC: JD.ED 15:21
DX: E87.6 Hypokalemia (principal); R42 Dizziness and giddiness; I10 Essential (primary) hypertension; J06.9 Acute upper respiratory infection, unspecified
CPT/HCPCS: 36415; 71045; 80053; 80306; 81001; 84484; 85007; 85027; 85379; 86140; 93005; 96361; 96374; 99285; A9270; J2060; J7030; 93010; 99284

== ENCOUNTER 2021-02-13 11:33 | Emergency (ER) | payer SELFPAY ==
[2021-02-13 12:04] VITALS: BP 145/95; PULSE 83
[2021-02-13] MEDS ORDERED: Lidocaine 2% Jelly 10 ML Urojet MUCMEM ONE (12:17)
--- NOTE | 2021-02-13 12:19 | EDM.PDOC ---
ED HPI GENERAL MEDICAL PROBLEM - General Chief Complaint: Gastrointestinal Problem Stated Complaint: BLOOD IN STOOL Time Seen by Provider: 02/13/21 12:14 Source of Information: Reports: Patient History Limitations: Reports: No Limitations - History of Present Illness INITIAL COMMENTS - FREE TEXT/NARRATIVE: 30-year-old male of descent presents to the ED for evaluation of rectal bleeding. He states once monthly he takes either herbal tea to provide bowel cleanse or sometimes uses magnesium citrate or Citroma. He has no pain with defecation. He did have a picture on his phone of the blood that was passed and there was a fair amount of bright red blood. He states he is prone to constipation. He has any seen small specks of blood in the past but never to the amount that he seen today and yesterday. Denies any abdominal pain fever chills. No history of inflammatory bowel disease. No previous abdominal surgery. Onset: Today (Small amount of bright red blood with wiping today after bowel movement. The picture he showed me of bright red blood per rectum was from a week ago) Onset Date: 02/07/21 (Bleeding per rectum since bowel cleanse a week ago) Duration: Day(s):, Intermittent (Noted bright red blood with wiping today after bowel movement) Location: Reports: Other Quality: Reports: Other (Rectal bleeding mild rectal bleeding) Severity: Mild Improves with: Reports: None Worsens with: Reports: None Context: Reports: Other (Rectal bleeding seems to occur after taking a herbal laxative to make his bowels work.). 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 [No Known Home Meds] 05/29/19 [History] Past Medical History - Past Health History Medical/Surgical History: Denies Medical/Surgical History Gastrointestinal History: Reports: Helicobacter Pylori Other Gastrointestinal History: states bm today was black Neurological History: Reports: Headaches, Chronic Psychiatric History: Reports: Anxiety Social & Family History - Family History Family Medical History: No Pertinent Family History - Tobacco Use Tobacco Use Status *Q: Never Tobacco User Second Hand Smoke Exposure: No - Caffeine Use Caffeine Use: Reports: None Other Caffeine Use: 1xmonth - Recreational Drug Use Recreational Drug Use: No - Living Situation & Occupation Living situation: Reports: Single Occupation: Employed ([employer]) ED ROS GENERAL - Review of Systems Review Of Systems: See Below Constitutional: Reports: No Symptoms HEENT: Reports: No Symptoms Respiratory: Reports: No Symptoms Cardiovascular: Reports: No Symptoms Endocrine: Reports: No Symptoms GI/Abdominal: Reports: Constipation : Reports: No Symptoms Musculoskeletal: Reports: No Symptoms Skin: Reports: No Symptoms Neurological: Reports: No Symptoms Psychiatric: Reports: No Symptoms Hematologic/Lymphatic: Reports: No Symptoms Immunologic: Reports: No Symptoms ED EXAM, GI/ABD - Physical Exam Exam: See Below Exam Limited By: No Limitations General Appearance: Alert, WD/WN, No Apparent Distress Eyes: Bilateral: Normal Appearance (No blepharal pallor or scleral icterus) Respiratory/Chest: No Respiratory Distress, Lungs Clear, Normal Breath Sounds, No Accessory Muscle Use Cardiovascular: Normal Peripheral Pulses, Regular Rate, Rhythm, No Gallop, No Murmur, No Rub GI/Abdominal Exam: Normal Bowel Sounds, Soft, Non-Tender, No Organomegaly, No Mass, Pelvis Stable, Other (A void abdomen no surgical scars) Rectal (Males) Exam: Normal Exam, Normal Rectal Tone, Other (No external hemorrhoids. No blood or obvious anal fissure appreciated.) Back Exam: Normal Inspection, Full Range of Motion. No: CVA Tenderness (L), CVA Tenderness (R) Extremities: Normal Inspection, Normal Range of Motion, Non-Tender, No Pedal Edema Neurological: Alert, Oriented, CN II-XII Intact, Normal Cognition Psychiatric: Anxious Skin Exam: Warm (Only anxious), Dry, Intact, Normal Color, No Rash ED ABDOMINAL/GI PROCEDURES - Additional/Other Procedure(s) Procedure(s) (Free Text): Rigid sigmoidoscopy performed up to 18 cm with the aid of lidocaine jelly anesthesia of the anus. There were no polyps or tumors identified. There is diffuse prominence of the blood vessels on the surface of the bowel or telangiectasia and you can see multiple areas that have ruptured causing small hemorrhages. This is the source of his bleeding per rectum. There was no internal hemorrhoids there was no anal fissure and there were no external hemorrhoids. There is no evidence of an inflammatory bowel disorder at this time. It appears this is secondary to the herbal tea laxative that he is taking to provide bowel cleanse on a monthly basis. Course - Vital Signs Last Recorded V/S: Last Vital Signs Temp 36.1 C 02/13/21 12:03 Pulse 83 02/13/21 12:03 Resp 17 02/13/21 12:03 BP 145/95 H 02/13/21 12:03 Pulse Ox 100 02/13/21 12:03 - Orders/Labs/Meds Meds: Medications Discontinued Medications Generic Name Dose Route Start Last Admin Trade Name Gisele PRN Reason Stop Dose Admin Lidocaine HCl 10 ml 02/13/21 12:17 02/13/21 12:49 Lidocaine 2% Jelly 10 Ml Urojet MUCMEM 02/13/21 12:18 10 ml ONETIME ONE Administration - Radiology Interpretation Free Text/Narrative:: 30-year-old male of -[place] descent presents to the ED for evaluation of intermittent rectal bleeding after a bowel cleanse. He takes a herbal laxative once monthly or sometimes magnesium citrate to provide bowel cleanse. This seems to be a cultural phenomenon. He is appreciated bright red blood per rectum after bowel cleanse a week ago and appreciated blood intermittently over this last week with wiping which occurred again this morning. He has no pain with bowel movements and no obvious protrusion of tissue from the rectum. On inspection of the anus there is no obvious external hemorrhoids and no obvious anal fissure. Plan will be to numb up his anus and rectal vault with lidocaine jelly and proceed with a sigmoidoscopy - Re-Assessments/Exams Free Text/Narrative Re-Assessment/Exam: 02/13/21 13:15: Rigid sigmoidoscopy was performed up to 18 cm and no tumors were encountered and or polyps. There was no internal hemorrhoids or external hemorrhoids or anal fissure. There was diffuse prominence of blood vessels on the surface of the colon like it has been irritated i.e. telangiectasia involving the entire colon in the lower 18 cm. I suspect this is due to inflammatory effect of tea the patient is taking to provide bowel cleanse on a monthly basis. There was no ulcerations to suggest inflammatory bowel disease. I have simply instructed the patient to no longer use this tea for bowel cleanse. Departure - Departure Time of Disposition: 13:37 Disposition: Home, Self-Care 01 Condition: Fair Clinical Impression: Rectal bleeding - Discharge Information *PRESCRIPTION DRUG MONITORING PROGRAM REVIEWED*: Not Applicable *COPY OF PRESCRIPTION DRUG MONITORING REPORT IN PATIENT SKYLAR: Not Applicable Referrals: PCP,None [Primary Care Provider] - Forms: ED Department Discharge Additional Instructions: Evaluation in the emergency room today in regards to rectal bleeding particular noted with wiping without any pain. As you indicated you are using a bowel cleanse Tea usually once monthly or using magnesium citrate to provide bowel cleanse. Of note this is not a necessary practice unless you feel that you are excessively constipated. If this is the case I would suggest using MiraLAX powder 17 g or 1 scoop daily as it has no taste and can be mixed with any beverage of choice to prevent constipation. Under local anesthetic I performed a rigid sigmoidoscopy of your colon and it shows no masses or tumors but it does show prominent broad blood vessels on the surface of the colon compatible with an inflammatory irritation likely from the T that was used about provide the bowel cleanse. We call this telangiectasia which means dilated broken blood vessels. There were no internal hemorrhoids no external hemorrhoids no anal fissure. I would suggest no further use of this T to provide bowel cleanse and I suspect that within a day or 2 there will be no further rectal bleeding as these areas will heal on their own. Sepsis Event Note (ED) - Focused Exam Vital Signs: Vital Signs Temp Pulse Resp BP Pulse Ox 02/13/21 12:03 36.1 C 83 17 145/95 H 100
== END 2021-02-13 14:07 | disposition home or self-care (01) ==
LOC: JD.ED 11:33
DX: K62.5 Hemorrhage of anus and rectum (principal)
CPT/HCPCS: 45300; 45330; 99283; 99283-25

== ENCOUNTER 2021-10-20 08:24 | Emergency (ER) | payer BC ==
[2021-10-20 08:42] VITALS: BP 144/95; PULSE 91
[2021-10-20] MEDS ORDERED: Sodium Chloride 0.9% 10 ML Syringe FLUSH PRN (08:43)
[2021-10-20] MEDS ORDERED: Sodium Chloride 0.9% 1,000 ML IV STA (08:43)
[2021-10-20] MEDS ORDERED: Ondansetron 4 MG/2 ML SDV IVPUSH ONE (08:43)
[2021-10-20 09:49] LABS: CORONAVIRUS COVID-19 NAA NEGATIVE (NEGATIVE)
== END 2021-10-20 10:16 | disposition home or self-care (01) ==
LOC: JD.ED 08:24
DX: R42 Dizziness and giddiness (principal); R11.0 Nausea; Z20.822 Contact with and (suspected) exposure to COVID-19
CPT/HCPCS: 0240U; 36415; 80053; 85025; 86140; 96361; 96374; 99284; J2405; J3490; J7030

== ENCOUNTER 2022-02-17 09:36 | Emergency (ER) | payer BC ==
[2022-02-17 12:07] VITALS: BP 131/85; PULSE 90
== END 2022-02-17 11:55 | disposition home or self-care (01) ==
LOC: JD.ED 09:36
DX: R42 Dizziness and giddiness (principal); Z20.822 Contact with and (suspected) exposure to COVID-19
CPT/HCPCS: 36415; 80053; 84484; 85025; 93005; 99284; U0002

== ENCOUNTER 2022-11-21 10:44 | Emergency (ER) | payer BC ==
[2022-11-21 11:00] VITALS: BP 144/98
[2022-11-21 14:37] LABS: BASOPHILS ABSOLUTE AUTO 0.02 K/mm3 (0.01-0.08); BASOPHILS PERCENT AUTO 0.3 % (0.1-1.2); EOSINOPHILS ABSOLUTE AUTO 0.01 K/mm3 (0.04-0.54); EOSINOPHILS PERCENT AUTO 0.2 (0.8-7.0); HEMATOCRIT 47.9 % (40.1-51.0); HEMOGLOBIN 15.8 gm/dl (13.7-17.5); LYMPHOCYTES ABSOLUTE AUTO 1.25 K/mm3 (1.32-3.57); LYMPHOCYTES PERCENT AUTO 20.9 % (21.8-53.1); MEAN CORPUSCULAR HEMOGLOBIN 27.3 pg (25.7-32.2); MEAN CORPUSCULAR VOLUME 82.9 fl (79.0-92.2); MEAN PLATELET VOLUME 12.3 fl (9.4-12.3); MONOCYTES ABSOLUTE AUTO 0.27 K/mm3 (0.30-0.82); MONOCYTES PERCENT AUTO 4.5 % (5.3-12.2); NEUTROPHILS ABSOLUTE AUTO 4.44 K/mm3 (1.78-5.38); NEUTROPHILS PERCENT AUTO 74.1 % (34.0-67.9); PLATELET COUNT,PLT 170 K/mm3 (163-337); RED BLOOD CELL COUNT 5.78 M/mm3 (4.63-6.08); WHITE BLOOD CELL COUNT,WBC 5.99 K/mm3 (4.23-9.07)
[2022-11-21 14:54] LABS: INR 1.01; PROTHROMBIN TIME 10.8 SECONDS (9.7-12.0)
[2022-11-21 14:56] LABS: PTT,PARTIAL THROMBOPLSTIN TIME 25.1 SECONDS (21.7-31.4)
[2022-11-21 15:09] LABS: A/G RATIO 1.1 (1-2); ALBUMIN 4.5 g/dl (3.4-5.0); ANION GAP 11.5 (5-15); BILIRUBIN TOTAL 0.9 mg/dL (0.2-1.0); BUN/CREATININE RATIO 6.4 (14-18); CALCIUM 9.8 mg/dL (8.5-10.1); CREATININE 1.1 mg/dL (0.7-1.3); EST CRCL DRUG DOSING (CG) 78.31 mL/min; POTASSIUM,K 3.5 mEq/L (3.5-5.1); PROTEIN TOTAL,TP 8.7 g/dl (6.4-8.2)
[2022-11-21 15:57] VITALS: PULSE 84
== END 2022-11-21 15:50 | disposition home or self-care (01) ==
LOC: JD.ED 10:44
DX: G43.909 Migraine, unspecified, not intractable, without status migrainosus (principal)
CPT/HCPCS: 36415; 70450; 70450-26; 80053; 84484; 85025; 85610; 85730; 93005; 93010; 99282; 99284

== ENCOUNTER 2023-04-15 06:16 | Emergency (ER) | payer BC ==
[2023-04-15] MEDS ORDERED: Sodium Chloride 0.9% 10 ML Syringe FLUSH PRN (06:52)
[2023-04-15] MEDS ORDERED: LORazepam 2 MG/ML SDV IVPUSH ONE (07:13)
[2023-04-15 07:18] LABS: BASOPHILS ABSOLUTE AUTO 0.1 K/mm3 (0.0-0.2); BASOPHILS PERCENT AUTO 1.2 % (0.0-1.0); EOSINOPHILS PERCENT AUTO 0.5 % (0.0-6.0); HEMATOCRIT 48.5 % (42.0-52.0); HEMOGLOBIN 16.4 gm/dl (14.0-18.0); IMMATURE GRAN ABSOLUTE AUTO 0.01 K/mm3 (0.00-0.05); IMMATURE GRAN PERCENT AUTO 0.2 % (0.0-0.4); LYMPHOCYTES PERCENT AUTO 49.2 % (24.0-44.0); MEAN CORPUSCULAR HEMOGLOBIN 28.2 pg (28.0-32.0); MEAN CORPUSCULAR HGB CONC 33.8 g/dl (32.0-36.0); MEAN CORPUSCULAR VOLUME 83.5 fl (83.0-99.0); MEAN PLATELET VOLUME 11.5 fl (9.4-12.4); MONOCYTES ABSOLUTE AUTO 0.3 K/mm3 (0.0-0.8); MONOCYTES PERCENT AUTO 7.5 % (0.0-8.0); NEUTROPHILS ABSOLUTE AUTO 1.7 K/mm3 (1.8-7.7); NEUTROPHILS PERCENT AUTO 41.4 % (41.0-71.0); PLATELET COUNT,PLT 174 K/mm3 (150-400); RED BLOOD CELL COUNT 5.81 M/mm3 (4.52-5.90); WHITE BLOOD CELL COUNT,WBC 4.13 K/mm3 (3.9-11.3)
[2023-04-15 07:40] LABS: A/G RATIO 1.1 (1-2); ALBUMIN 4.1 g/dl (3.4-5.0); ANION GAP 15.3 (5-15); BILIRUBIN TOTAL 0.6 mg/dL (0.2-1.0); BUN/CREATININE RATIO 13.6 (14-18); CALCIUM 9.3 mg/dL (8.5-10.1); CREATININE 1.1 mg/dL (0.7-1.3); EST CRCL DRUG DOSING (CG) 80.41 mL/min; MAGNESIUM 1.6 mg/dL (1.8-2.4); POTASSIUM,K 3.3 mEq/L (3.5-5.1)
[2023-04-15 08:39] VITALS: BP 124/84
[2023-04-15 09:04] VITALS: PULSE 66
== END 2023-04-15 09:00 | disposition home or self-care (01) ==
LOC: JD.ED 06:16
DX: R00.2 Palpitations (principal); F41.9 Anxiety disorder, unspecified
CPT/HCPCS: 36415; 71045; 80053; 83735; 84443; 85025; 93005; 93246; 96374; 99285; J2060; J3490; 93010; 99284

== ENCOUNTER 2024-02-22 21:14 | Emergency (ER) | payer BC ==
[2024-02-22 21:44] VITALS: PULSE 80
[2024-02-22 22:11] LABS: BASOPHILS ABSOLUTE AUTO 0.1 K/mm3 (0.0-0.2); BASOPHILS PERCENT AUTO 0.9 % (0.0-1.0); EOSINOPHILS ABSOLUTE AUTO 0.1 K/mm3 (0.0-0.4); EOSINOPHILS PERCENT AUTO 0.9 % (0.0-6.0); HEMATOCRIT 47.4 % (42.0-52.0); HEMOGLOBIN 15.5 gm/dl (14.0-18.0); IMMATURE GRAN ABSOLUTE AUTO 0.01 K/mm3 (0.00-0.05); IMMATURE GRAN PERCENT AUTO 0.2 % (0.0-0.4); LYMPHOCYTES ABSOLUTE AUTO 2.4 K/mm3 (1.0-4.8); LYMPHOCYTES PERCENT AUTO 46.3 % (24.0-44.0); MEAN CORPUSCULAR HEMOGLOBIN 27.5 pg (28.0-32.0); MEAN CORPUSCULAR HGB CONC 32.7 g/dl (32.0-36.0); MEAN CORPUSCULAR VOLUME 84.2 fl (83.0-99.0); MONOCYTES ABSOLUTE AUTO 0.4 K/mm3 (0.0-0.8); MONOCYTES PERCENT AUTO 7.6 % (0.0-8.0); NEUTROPHILS ABSOLUTE AUTO 2.3 K/mm3 (1.8-7.7); NEUTROPHILS PERCENT AUTO 44.1 % (41.0-71.0); PLATELET COUNT,PLT 204 K/mm3 (150-400); RED BLOOD CELL COUNT 5.63 M/mm3 (4.52-5.90); WHITE BLOOD CELL COUNT,WBC 5.27 K/mm3 (3.9-11.3)
[2024-02-22 23:00] LABS: A/G RATIO 1.2 (1-2); ALANINE AMINOTRANSFERASE,ALT 26 U/L (16-63); ALBUMIN 4.2 g/dl (3.4-5.0); ALKALINE PHOSPHATASE 52 U/L (46-116); ANION GAP 12.1 (5-15); ASPARTATE AMNIOTRANSFERASE,AST 22 U/L (15-37); BILIRUBIN TOTAL 0.4 mg/dL (0.2-1.0); BLOOD UREA NITROGEN,BUN 14 mg/dL (7-18); BUN/CREATININE RATIO 12.7 (14-18); CALCIUM 9.4 mg/dL (8.5-10.1); CARBON DIOXIDE,CO2 28 mEq/L (21-32); CHLORIDE,CL 102 mEq/L (98-107); CREATININE 1.1 mg/dL (0.7-1.3); ESTIMATED GFR 91 mL/min (>60); GLUCOSE RANDOM 93 mg/dL (70-99); MAGNESIUM 1.7 mg/dL (1.8-2.4); POTASSIUM,K 3.1 mEq/L (3.5-5.1); PROTEIN TOTAL,TP 7.8 g/dl (6.4-8.2); SODIUM,NA 139 mEq/L (136-145)
[2024-02-22 23:06] LABS: TROPONIN I HIGH SENSITIVITY < 4 pg/mL (<=76)
[2024-02-23] MEDS: Magnesium Oxide 400 MG Tab PO SCH (00:56)
[2024-02-23] MEDS: Potassium Chloride 20 MEQ Tab.ER PO ONE (00:56)
[2024-02-23 00:58] VITALS: BP 125/85
== END 2024-02-23 01:00 | disposition home or self-care (01) ==
LOC: JD.ED 21:14
DX: E83.42 Hypomagnesemia (principal); E87.6 Hypokalemia; R07.9 Chest pain, unspecified
CPT/HCPCS: 36415; 71045; 80053; 83735; 84484; 85025; 93005; 99285; A9270

== ENCOUNTER 2024-07-16 18:59 | Emergency (ER) | payer BC ==
[2024-07-16 19:35] LABS: BASOPHILS PERCENT AUTO 0.7 % (0.0-1.0); EOSINOPHILS ABSOLUTE AUTO 0.1 K/mm3 (0.0-0.4); HEMATOCRIT 43.1 % (42.0-52.0); HEMOGLOBIN 14.2 gm/dl (14.0-18.0); IMMATURE GRAN ABSOLUTE AUTO 0.01 K/mm3 (0.00-0.05); IMMATURE GRAN PERCENT AUTO 0.2 % (0.0-0.4); LYMPHOCYTES ABSOLUTE AUTO 3.3 K/mm3 (1.0-4.8); LYMPHOCYTES PERCENT AUTO 55.7 % (24.0-44.0); MEAN CORPUSCULAR HEMOGLOBIN 27.3 pg (28.0-32.0); MEAN CORPUSCULAR HGB CONC 32.9 g/dl (32.0-36.0); MEAN CORPUSCULAR VOLUME 82.9 fl (83.0-99.0); MEAN PLATELET VOLUME 11.2 fl (9.4-12.4); MONOCYTES ABSOLUTE AUTO 0.5 K/mm3 (0.0-0.8); MONOCYTES PERCENT AUTO 7.7 % (0.0-8.0); NEUTROPHILS PERCENT AUTO 34.7 % (41.0-71.0); PLATELET COUNT,PLT 187 K/mm3 (150-400); WHITE BLOOD CELL COUNT,WBC 5.83 K/mm3 (3.9-11.3)
[2024-07-16 19:53] LABS: A/G RATIO 1.1 (1-2); ALANINE AMINOTRANSFERASE,ALT 35 U/L (16-63); ALBUMIN 3.8 g/dl (3.4-5.0); ALKALINE PHOSPHATASE 49 U/L (46-116); ANION GAP 13.4 (5-15); ASPARTATE AMNIOTRANSFERASE,AST 23 U/L (15-37); BILIRUBIN TOTAL 0.5 mg/dL (0.2-1.0); BLOOD UREA NITROGEN,BUN 11 mg/dL (7-18); CALCIUM 8.7 mg/dL (8.5-10.1); CARBON DIOXIDE,CO2 28 mEq/L (21-32); CHLORIDE,CL 103 mEq/L (98-107); CREATININE 1.1 mg/dL (0.7-1.3); EST CRCL DRUG DOSING (CG) 83.09 mL/min; ESTIMATED GFR 91 mL/min (>60); GLUCOSE RANDOM 86 mg/dL (70-99); MAGNESIUM 1.7 mg/dL (1.8-2.4); POTASSIUM,K 3.4 mEq/L (3.5-5.1); PROTEIN TOTAL,TP 7.2 g/dl (6.4-8.2); SODIUM,NA 141 mEq/L (136-145); TSH 3.671 uIU/mL (0.358-3.74)
[2024-07-16 20:07] LABS: TROPONIN I HIGH SENSITIVITY < 4 pg/mL (<=76)
[2024-07-16 21:03] VITALS: BP 123/74; PULSE 71
== END 2024-07-16 21:01 | disposition home or self-care (01) ==
LOC: JD.ED 18:59
DX: R00.2 Palpitations (principal); E83.42 Hypomagnesemia; E87.6 Hypokalemia
CPT/HCPCS: 36415; 80053; 83735; 84443; 84484; 85025; 93005; 99285